=== PATIENT | female | born 1945 | race Caucasian/White ===

== ENCOUNTER → 2016-10-07 | Outpatient (CLI) | payer MEDICARE, MEDICAID ==
--- NOTE | 2016-10-07 18:56 | RADIOLOGY REPORT (SQ) ---
EXAM DESCRIPTION: MRI HEAD WITHOUT COMPLETED DATE/TIME: 10/07/2016 5:57 pm REASON FOR STUDY: CVA I63.9 CEREBRAL INFARCTION, UNSPECIFIED M54.12 RADICULOPATHY, CERVICAL REGION COMPARISON: CT dated 11/15/2011. TECHNIQUE: Multiplanar imaging includes non-contrasted T1, T2, FLAIR, and diffusion with ADC map seq uences. Images stored on PACS. LIMITATIONS: None. FINDINGS: ANATOMY: No anomalies. Normal vascular flow voids. Incidental empty sella. CSF SPACES: Normal in size and contour. No hemorrhage. CEREBRUM: Sulci and gyri normal in size and contour. Normal white matter signal on FLAIR imaging. No evidence of hemorrhage, mass, or extraaxial fluid collection. POSTERIOR FOSSA: No signal alteration. No hemorrhage. No edema, masses or mass effect. Internal vivian tory canals, cerebello-pontine angles, mastoids normal. DIFFUSION IMAGING: Negative for acute or sub-acute infarction. ORBITS: No masses. Globes normal. PARANASAL SINUSES: No fluid levels. Mucosa normal. OTHER: No other significant finding. IMPRESSION: NORMAL MRI OF THE BRAIN WITHOUT INTRAVENOUS GADOLINIUM CONTRAST. TECHNICAL DOCUMENTATION: JOB ID: [id number] [employer]- All Rights Reserved
--- NOTE | 2016-10-07 19:44 | RADIOLOGY REPORT (SQ) ---
EXAM DESCRIPTION: MRA HEAD WITHOUT COMPLETED DATE/TIME: 10/07/2016 5:57 pm REASON FOR STUDY: CVA I63.9 CEREBRAL INFARCTION, UNSPECIFIED M54.12 RADICULOPATHY, CERVICAL REGION COMPARISON: None. TECHNIQUE: Axial 3-D lnus-th-holave acquisition imaging performed through the brain in the area of t he [place]. Images reformatted using 3-D MIPS. LIMITATIONS: None. FINDINGS: SOURCE IMAGES: No unexpected findings on source images. No large masses. 3-D MIP: No aneurysm. No occlusions. No significant stenosis. Incidental origin of the left posterior cerebral artery. OTHER: No other significant finding. IMPRESSION: NORMAL MRA OF THE [place]. TECHNICAL DOCUMENTATION: JOB ID: [id number] [employer]- All Rights Reserved
--- NOTE | 2016-10-07 19:54 | RADIOLOGY REPORT (SQ) ---
EXAM DESCRIPTION: MRI CERVICAL SPINE WITHOUT COMPLETED DATE/TIME: 10/07/2016 5:57 pm REASON FOR STUDY: CVA I63.9 CEREBRAL INFARCTION, UNSPECIFIED M54.12 RADICULOPATHY, CERVICAL REGION COMPARISON: None. TECHNIQUE: Sagittal and Axial imaging includes T1, T2, STIR and gradient echo sequences. LIMITATIONS: None. FINDINGS: ALIGNMENT: Normal. VERTEBRAE: Intact. BONE MARROW: Normal. No marrow replacement or reactive changes. DISCS: Mild decreased height and signal of the lower cervical discs with prominent anterior osteophyt es, particularly at C5-C6 and C6-C7. HARDWARE: None in the spine. CORD AND BASE OF BRAIN: Normal in size and signal intensity. SOFT TISSUES: No soft tissue masses. C1-C2: No significant spinal stenosis. C2-C3: No significant spinal stenosis or exit foraminal stenosis. C3-C4: Small central disc bulge which minimally indents the thecal sac. No significant spinal stenos is or exit foraminal stenosis. C4-C5: Small central disc bulge which minimally indents the thecal sac. No significant spinal stenos is or exit foraminal stenosis. C5-C6: Mild diffuse posterior disc and osteophyte with right lateral component. Borderline mild spin al stenosis. Moderate right exit foraminal stenosis. C6-C7: Mild diffuse posterior disc and osteophyte with small central component. No significant spina l stenosis or exit foraminal stenosis. C7-T1: No significant spinal stenosis or exit foraminal stenosis. UPPER THORACIC: Incompletely imaged. No significant spinal stenosis or exit foraminal stenosis. OTHER: No other significant finding. IMPRESSION: DEGENERATIVE DISC DISEASE DESCRIBED ABOVE. NO SIGNIFICANT SPINAL STENOSIS. THERE IS MODERATE RIGHT EXIT FORAMINAL STENOSIS AT C5-C6. TECHNICAL DOCUMENTATION: JOB ID: [id number]- All Rights Reserved
== END ==
LOC: RAD 15:22
PROVIDERS: ATTEND Specialist
DX: M54.12 Radiculopathy, cervical region (principal); I63.9 Cerebral infarction, unspecified
CPT/HCPCS: 70544; 70551; 72141

== ENCOUNTER → 2016-10-17 | Outpatient (CLI) | payer MEDICARE, MEDICAID ==
--- NOTE | 2016-10-17 15:29 | RADIOLOGY REPORT (SQ) ---
EXAM DESCRIPTION: MRI LUMBAR SPINE WITHOUT COMPLETED DATE/TIME: 10/17/2016 12:56 pm REASON FOR STUDY: LUMBAR RADICULOPATHY M54.16 RADICULOPATHY, LUMBAR REGION COMPARISON: None. TECHNIQUE: Sagittal and Axial imaging includes T1, T2, STIR and gradient echo sequences. Coronal T2/ HASTE imaging. LIMITATIONS: None. FINDINGS: VISUALIZED UPPER ABDOMEN: Limited evaluation. No acute or suspicious findings suggested. SEGMENTATION: No transitional anatomy. The lowest well-developed disc space is labeled L5-S1. ALIGNMENT: 25% anterolisthesis of L4 over L5 VERTEBRAE: Intact. BONE MARROW: Normal. No marrow replacement or reactive changes. DISC SIGNAL: Diffuse decreased T2 weighted intervertebral disc signal. Significant disc space loss o f height at L5-S1 POSTERIOR ELEMENTS: Generally intact. No pars defect evident. Very bulky bilateral facet arthropat hy at L4-5 HARDWARE: None in the spine. CORD AND CONUS: Normal in size and signal intensity. Conus at the mid L1 level. SOFT TISSUES: No aortic aneurysm seen. No bulky retroperitoneal adenopathy or mass. No paraspinal mas s or fluid. T10-11: At the upper edge of the field of view. Moderate bilateral foraminal narrowing results from bilateral facet arthropathy. No central stenosis. T11-12: No central or foraminal stenosis. Mild bilateral facet hypertrophy. T12-L1: No central or foraminal stenosis. Mild bilateral facet hypertrophy. L1-L2: No significant spinal stenosis or exit foraminal stenosis. Moderate bilateral facet hypertrop hy. L2-L3: No significant spinal stenosis or exit foraminal stenosis. Moderate bilateral facet hypertrop hy L3-L4: No significant spinal stenosis or exit foraminal stenosis. Bulky bilateral facet hypertrophy L4-L5: Grade 1 anterolisthesis of L4 over L5, broad diffuse posterior disc bulge, and very bulky bila teral facet and ligament hypertrophy combine to cause moderate central canal stenosis at L4-5. There is partial effacement of the CSF around the lumbar nerve roots, best shown on axial T2 image 25. Mi ld right, moderate left foraminal narrowing with partial effacement of fat around the exiting left L4 nerve root. L5-S1: Broad diffuse posterior disc bulge and bony spurring, bulky bilateral facet and ligament hyper trophy. No central stenosis. Moderate bilateral foraminal narrowing with partial effacement of the fat around the exiting L5 nerve roots. SACRUM: Visualized upper sacrum intact. OTHER: No other significant findings. IMPRESSION: Degenerative changes most pronounced at L4-5 and L5-S1 TECHNICAL DOCUMENTATION: JOB ID: [id number] [employer]- All Rights Reserved
== END ==
LOC: RAD 10:56
PROVIDERS: ATTEND Specialist
DX: M54.16 Radiculopathy, lumbar region (principal)
CPT/HCPCS: 72148

== ENCOUNTER → 2017-01-31 | Outpatient (CLI) | payer MEDICARE, MEDICAID ==
--- NOTE | 2017-01-31 11:04 | RADIOLOGY REPORT (SQ) ---
EXAM DESCRIPTION: U/S ABDOMEN COMPLETE W/DOPPLER COMPLETED DATE/TIME: 01/31/2017 10:42 am REASON FOR STUDY: LUQ PAIN R10.12 LEFT UPPER QUADRANT PAIN COMPARISON: 04/24/2015 TECHNIQUE: Dynamic and static grayscale images acquired of the abdomen and recorded on PACS. Additio nal selected color Doppler and spectral images recorded. LIMITATIONS: Study limited by body habitus. FINDINGS: PANCREAS: No masses. Visualized pancreatic duct normal caliber. LIVER: 15.2 cm. Increased echogenicity. No masses. LIVER VASCULATURE: Normal directional flow of the main portal vein and hepatic veins. GALLBLADDER: Surgically absent. ULTRASOUND-DETECTED CLAYTON'S SIGN: Not applicable. INTRAHEPATIC DUCTS AND COMMON DUCT: There are no dilated intrahepatic ducts. The common bile duct co uld not be seen. INFERIOR VENA CAVA: Normal flow. AORTA: The proximal and mid abdominal aorta are normal. The distal aorta was obscured by gas. RIGHT KIDNEY: Normal size, 10 cm. Normal echogenicity. No solid or suspicious masses. No hydro nephrosis. No calcifications. LEFT KIDNEY: Normal size, 9.7 cm. Normal echogenicity. No solid or suspicious masses. No hydro nephrosis. No calcifications. SPLEEN: Normal size, 9.5 cm. No masses. PERITONEAL AND PLEURAL SPACES: No ascites or effusions. OTHER: No other significant finding. IMPRESSION: Fatty infiltration of the liver. TECHNICAL DOCUMENTATION: JOB ID: [id number] [employer]- All Rights Reserved
== END ==
LOC: RAD 09:41
PROVIDERS: ATTEND Physician Assistant
DX: R10.12 Left upper quadrant pain (principal)
CPT/HCPCS: 76700; 93976

== ENCOUNTER → 2017-03-03 | Outpatient (CLI) | payer MEDICARE, MEDICAID ==
--- NOTE | 2017-03-03 12:40 | RADIOLOGY REPORT (SQ) ---
EXAM DESCRIPTION: HIP LEFT AP/LATERAL COMPLETED DATE/TIME: 03/03/2017 12:02 pm REASON FOR STUDY: PAIN IN LEFT HIP M25.552 PAIN IN LEFT HIP COMPARISON: None. NUMBER OF VIEWS: Two views. TECHNIQUE: AP pelvis and additional frog-leg view of the left hip. LIMITATIONS: None. FINDINGS: MINERALIZATION: Normal. LEFT HIP: No fracture or dislocation. No worrisome bone lesions. RIGHT HIP: No fracture or dislocation. No worrisome bone lesions. PUBIS AND ISCHIUM: No fracture. PELVIS: No fracture. SACRUM: No fracture or dislocation. No worrisome bone lesions. LOWER LUMBAR SPINE: Lower lumbar spondylosis. SOFT TISSUES: No findings. OTHER: No other significant finding. IMPRESSION: NEGATIVE STUDY OF THE LEFT HIP AND PELVIS. NO RADIOGRAPHIC EVIDENCE OF ACUTE INJURY. TECHNICAL DOCUMENTATION: JOB ID: [id number] [employer]- All Rights Reserved
== END ==
LOC: OD 11:49
PROVIDERS: ATTEND Physician Assistant
DX: M25.552 Pain in left hip (principal)

== ENCOUNTER → 2017-03-05 | Outpatient (CLI) | payer MEDICARE, MEDICAID ==
--- NOTE | 2017-03-05 10:36 | RADIOLOGY REPORT (SQ) ---
EXAM DESCRIPTION: FOOT LEFT COMPLETE COMPLETED DATE/TIME: 03/05/2017 9:28 am REASON FOR STUDY: PAIN IN LEFT FOOT M79.672 PAIN IN LEFT FOOT COMPARISON: 07/15/2011 NUMBER OF VIEWS: Three views. TECHNIQUE: AP, lateral and oblique radiographic images acquired of the left foot. LIMITATIONS: None. FINDINGS: MINERALIZATION: Normal. BONES: There is a long oblique fracture of the 5th metatarsal. There are characteristics of an acute fracture but there also characteristics that suggest this may be old. Prominent calcaneal spurs are present JOINTS: No effusions. SOFT TISSUES: No soft tissue swelling. No foreign body. OTHER: No other significant finding. IMPRESSION: 5th metatarsal fracture of uncertain age. Correlate clinically and historically. Calca arash spurs. TECHNICAL DOCUMENTATION: JOB ID: [id number] [employer]- All Rights Reserved
== END ==
LOC: OD 09:15
PROVIDERS: ATTEND Physician Assistant
DX: M79.672 Pain in left foot (principal)

== ENCOUNTER → 2017-03-05 | Outpatient (CLI) | payer MEDICARE, MEDICAID ==
--- NOTE | 2017-03-05 10:27 | RADIOLOGY REPORT (SQ) ---
EXAM DESCRIPTION: CT HEAD WITHOUT COMPLETED DATE/TIME: 03/05/2017 8:38 am REASON FOR STUDY: CONCUSSION WITH LOSS OF CONSCIOUSNESS OF 30 MINUTES OR LESS (S06.0X1A) S06.0X1A C ONCUSSION W LOC OF 30 MINUTES OR LESS, INIT COMPARISON: MR 10/07/2016 TECHNIQUE: Axial images acquired through the brain without intravenous contrast. Images reviewed wi th bone, brain and subdural windows. Images stored on PACS. All CT scanners at this facility use dose modulation, iterative reconstruction, and/or weight based d osing when appropriate to reduce radiation dose to as low as reasonably achievable (ALARA). [facility]: Dose Right [facility]: CareDose [facility]: Dose Right [facility]: Teradose 4D [facility]: Vimbly RADIATION DOSE: CT Rad equipment meets quality standard of care and radiation dose reduction techniq ues were employed. CTDIvol: 49.0 mGy. DLP: 783 mGy-cm. mGy. LIMITATIONS: None. FINDINGS: VENTRICLES: Normal size and contour. CEREBRUM: No masses. No hemorrhage. No midline shift. No evidence for acute infarction. Normal gra y/white matter differentiation. No areas of low density in the white matter. CEREBELLUM: No masses. No hemorrhage. No alteration of density. No evidence for acute infarction. EXTRAAXIAL SPACES: No fluid collections. No masses. ORBITS AND GLOBE: No intra- or extraconal masses. Normal contour of globe without masses. CALVARIUM: No fracture. PARANASAL SINUSES: No fluid or mucosal thickening. SOFT TISSUES: No mass or hematoma. OTHER: No other significant finding. IMPRESSION: NORMAL BRAIN CT WITHOUT CONTRAST. EVIDENCE OF ACUTE STROKE: NO. COMMENT: Quality ID # [id number]: Final reports with documentation of one or more dose reduction techniques (e.g., Automated exposure control, adjustment of the mA and/or kV according to patient size, use of iterative reconstruction technique) TECHNICAL DOCUMENTATION: JOB ID: [id number] [employer] All Rights Reserved
== END ==
LOC: RAD 08:23
PROVIDERS: ATTEND Physician Assistant
DX: S06.0X1A Concussion with loss of consciousness of 30 minutes or less, initial encounter (principal); X58.XXXA Exposure to other specified factors, initial encounter; Y93.9 Activity, unspecified; Y92.9 Unspecified place or not applicable; Y99.9 Unspecified external cause status
CPT/HCPCS: 70450

== ENCOUNTER → 2017-03-27 | Outpatient (CLI) | payer MEDICARE, MEDICAID ==
--- NOTE | 2017-03-27 12:57 | RADIOLOGY REPORT (SQ) ---
EXAM DESCRIPTION: FOOT RIGHT 2 VIEWS COMPLETED DATE/TIME: 03/27/2017 11:41 am REASON FOR STUDY: PAIN IN RIGHT TOES M79.674 PAIN IN RIGHT TOE(S) M25.571 PAIN IN RIGHT ANKLE AND JOINTS OF RIGHT FOOT COMPARISON: None. NUMBER OF VIEWS: Three views. TECHNIQUE: AP, lateral and oblique radiographic images acquired of the right foot. LIMITATIONS: None. FINDINGS: MINERALIZATION: Normal. BONES: No fracture or dislocation. Very large plantar and dorsal calcaneal spurs are present. JOINTS: No effusions. SOFT TISSUES: No soft tissue swelling. No foreign body. OTHER: No other significant finding. IMPRESSION: Calcaneal spurs. No acute abnormality. TECHNICAL DOCUMENTATION: JOB ID: [id number] [employer]- All Rights Reserved
--- NOTE | 2017-03-27 12:59 | RADIOLOGY REPORT (SQ) ---
EXAM DESCRIPTION: ANKLE RIGHT COMPLETE COMPLETED DATE/TIME: 03/27/2017 11:41 am REASON FOR STUDY: PAIN IN RIGHT ANKLE AND JOINTS OF RIGHT FOOT M79.674 PAIN IN RIGHT TOE(S) M25.571 PAIN IN RIGHT ANKLE AND JOINTS OF RIGHT FOOT COMPARISON: 10/10/2014 NUMBER OF VIEWS: Three views. TECHNIQUE: AP, lateral, and oblique radiographic images acquired of the right ankle. LIMITATIONS: None. FINDINGS: MINERALIZATION: Normal. BONES: No acute fracture or dislocation. No worrisome bone lesions. JOINTS: No effusions. SOFT TISSUES: Lateral soft tissue swelling. OTHER: No other significant finding. IMPRESSION: Soft tissue swelling with no fracture TECHNICAL DOCUMENTATION: JOB ID: [id number] [employer]- All Rights Reserved
== END ==
LOC: OD 11:09
PROVIDERS: ATTEND Physician Assistant
DX: M79.674 Pain in right toe(s) (principal); M25.571 Pain in right ankle and joints of right foot; M77.31 Calcaneal spur, right foot; M79.89 Other specified soft tissue disorders

== ENCOUNTER → 2017-04-21 | Outpatient (CLI) | payer MEDICARE, MEDICAID ==
[2017-04-21 15:12] LABS: ABSOLUTE EOSINOPHILS # (AUTO) 0.3 10^3/uL (0.0-0.6); ABSOLUTE LYMPHOCYTES (AUTO) 2.6 10^3/uL (0.5-4.7); ABSOLUTE MONOCYTES (AUTO) 0.6 10^3/uL (0.1-1.4); ABSOLUTE NEUT (AUTO) 3.4 10^3/uL (1.7-8.2); BASOPHILS % (AUTO) 0.7 % (0-2); EOSINOPHILS % (AUTO) 4.2 % (0-6); HEMATOCRIT 44.4 % (36.0-47.0); HEMOGLOBIN 14.7 g/dL (12.0-15.5); MEAN CORPUSCULAR HEMOGLOBIN 31.7 pg (27.0-33.4); MEAN CORPUSCULAR HGB CONC 33.2 g/dL (32.0-36.0); MEAN CORPUSCULAR VOLUME 96 fl (80-97); MONOCYTES % (AUTO) 8.4 % (3-13); PLATELET COUNT 137 10^3/uL (150-450); RED BLOOD COUNT 4.65 10^6/uL (3.72-5.28); RED CELL DISTRIBUTION WIDTH 15.3 % (11.5-14.0); SEGMENTED NEUTROPHILS % (AUTO) 49.7 % (42-78); TOTAL CELLS COUNTED % (AUTO) 100 %; WHITE BLOOD COUNT 6.9 10^3/uL (4.0-10.5)
[2017-04-21 15:23] LABS: ANION GAP 14 (5-19); BLOOD UREA NITROGEN 33 mg/dL (7-20); CALCIUM 10.1 mg/dL (8.4-10.2); CARBON DIOXIDE 27 mmol/L (22-30); CHLORIDE 102 mmol/L (98-107); POTASSIUM 4.3 mmol/L (3.6-5.0); SODIUM 142.7 mmol/L (137-145)
[2017-04-21 15:24] LABS: GLUCOSE 73 mg/dL (75-110)
== END ==
LOC: OD 14:33
PROVIDERS: ATTEND Surgery
DX: R10.32 Left lower quadrant pain (principal)
CPT/HCPCS: 36415; 80048; 85025

== ENCOUNTER → 2017-04-25 | Outpatient (CLI) | payer MEDICARE, MEDICAID ==
--- NOTE | 2017-04-25 15:20 | RADIOLOGY REPORT (SQ) ---
EXAM DESCRIPTION: CT ABD/PELVIS WITH IV ORAL COMPLETED DATE/TIME: 04/25/2017 12:38 pm REASON FOR STUDY: R10.32 LEFT LOWER QUADRANT PAIN R10.32 LEFT LOWER QUADRANT PAIN COMPARISON: None. TECHNIQUE: CT scan of the abdomen and pelvis performed with intravenous and oral contrast using luis carlos libra scanning technique with dynamic intravenous contrast injection. Images reviewed with lung, soft t issue, and bone windows. Reconstructed coronal and sagittal MPR images reviewed. Delayed images for e valuation of the urinary system also acquired. All images stored on PACS. All CT scanners at this facility use dose modulation, iterative reconstruction, and/or weight based d osing when appropriate to reduce radiation dose to as low as reasonably achievable (ALARA). [facility]: Dose Right [facility]: CareDose [facility]: Dose Right [facility]: Teradose 4D [facility]: Smava CONTRAST TYPE AND DOSE: contrast/concentration: Isovue 370.00 mg/ml; Total Contrast Delivered: 100.0 ml; Total Saline Delivered: 52.3 ml RENAL FUNCTION: BUN 33 creatinine 1.1 RADIATION DOSE: CT Rad equipment meets quality standard of care and radiation dose reduction techniq ues were employed. CTDIvol: 23.8 - 26.6 mGy. DLP: 2832 mGy-cm. . LIMITATIONS: Motion. FINDINGS: LOWER CHEST: No significant findings. No nodules or infiltrates. LIVER: Normal size. No masses. No dilated ducts. SPLEEN: Normal size. Small cyst. PANCREAS: No masses. No significant calcifications. No adjacent inflammation or peripancreatic fluid collections. Pancreatic duct not dilated. GALLBLADDER: Surgically absent. ADRENAL GLANDS: No significant masses or asymmetry. RIGHT KIDNEY AND URETER: No solid masses. No significant calcifications. No hydronephrosis or hyd roureter. LEFT KIDNEY AND URETER: No solid masses. No significant calcifications. No hydronephrosis or hydr oureter. AORTA AND VESSELS: No aneurysm. No dissection. Renal arteries, SMA, celiac without stenosis. RETROPERITONEUM: No retroperitoneal adenopathy, hemorrhage or masses. BOWEL AND PERITONEAL CAVITY: No obstruction. No visualized masses. No free fluid. No inflammatory ch anges or thickening of bowel wall. APPENDIX: Surgically absent. PELVIS: No significant masses. Normal bladder. No free fluid. ABDOMINAL WALL: Small umbilical hernia containing fat. BONES: No acute findings. OTHER: No other significant finding. IMPRESSION: Small umbilical hernia. No acute findings. TECHNICAL DOCUMENTATION: JOB ID: [id number] Quality ID # [id number]: Final reports with documentation of one or more dose reduction techniques (e.g., Au tomated exposure control, adjustment of the mA and/or kV according to patient size, use of iterative reconstruction technique) 2010 [employer]- All Rights Reserved
== END ==
LOC: RAD 12:09
PROVIDERS: ATTEND Surgery
DX: R10.32 Left lower quadrant pain (principal)
CPT/HCPCS: 74177

== ENCOUNTER 2017-06-03 07:51 | Day surgery (SDC) | payer MEDICARE, MEDICAID ==
[2017-06-03] MEDS ORDERED: NALOXONE HCL INJ/PF 0.4 MG/1 ML SDV ONE (09:58)
[2017-06-03] MEDS ORDERED: ONDANSETRON HCL INJ/PF 4 MG/2 ML SDV ONE (09:58)
[2017-06-03] MEDS ORDERED: GLYCOPYRROLATE INJ 0.4 MG/2 ML VIAL ONE (09:58)
[2017-06-03] MEDS ORDERED: GLUCAGON,HUMAN RECOMB 1 MG INJ ONE (09:59)
[2017-06-03] MEDS ORDERED: FLUMAZENIL INJ 0.5 MG/5 ML VIAL ONE (09:59)
[2017-06-03] MEDS ORDERED: EPINEPHRINE INJ 1 MG/10 ML DISP.SYRIN ONE (09:59)
[2017-06-03] MEDS: MIDAZOLAM 2 MG/2 ML INJ ONE ×10 (10:26→11:43)
[2017-06-03] MEDS: FENTANYL CITRATE INJ/PF 100 MCG/2 ML AMPUL ONE ×8 (10:28→11:39)
--- NOTE | 2017-06-03 12:12 | Operative Report ---
Operative Report DATE OF SURGERY: 06/03/17 PREOPERATIVE DIAGNOSIS: Abdominal pain POSTOPERATIVE DIAGNOSIS: Antral polyp. Extensive diverticulosis of the colon. Splenic flexure serrated polyp. OPERATION: Esophagogastroduodenoscopy with snare polypectomy of gastric polyp. Colonoscopy with snare polypectomy a serrated polyp of the splenic flexure. SURGEON: TOVA MCGEE ANESTHESIA: Moderate Sedation TISSUE REMOVED OR ALTERED: Antral polyp. Serrated polyp of the splenic flexure. COMPLICATIONS: None ESTIMATED BLOOD LOSS: 20 cc INTRAOPERATIVE FINDINGS: Half centimeter sessile polyp at the prepyloric region. Half centimeter serrated polyp at the hepatic flexure. Extensive diverticulosis of the left and sigmoid colon. PROCEDURE: Informed consent was obtained. Patient was brought to the endoscopy suite. IV sedation with Versed and fentanyl was administered. Endoscope was passed via the patient's mouth into the second portion of the duodenum. The duodenum appeared to be normal. At the prepyloric region there was 1/2 cm sessile polyp. It was snare polypectomied. The specimen was retrieved. It bled at the polypectomy site requiring cautery. The site of bleeding was difficult to control. The bleeding appeared to have stopped. Remainder of the stomach appeared normal. The esophagus appeared normal. Although the bleeding appeared to have stopped, with the difficulty of obtaining initial hemostasis, after the colonoscopy portion of the procedure I rescoped her stomach to ensure that she did not have recurrent bleeding. The site of the polypectomy was irrigated. And hemostasis appeared good. Patient was repositioned. Digital rectal exam revealed no palpable perianal masses. Endoscope was passed via the patient's anus it was fed to the cecum. The cecum appeared normal. As did the right colon. There were diverticuli seen in the transverse colon. At the splenic flexure there was a serrated polyp which was snare polypectomy need and specimen retrieved. The polyp measured about half centimeter in size. The left colon had more diverticuli as did the sigmoid colon. Patient did appear to have pain during passage of the scope through the left side of her colon. But the colon demonstrated no evidence of inflammation. No mucosal lesions. No strictures. The rectum appeared normal. Patient tolerated procedure well with no apparent complications and was taken to the recovery area in stable condition. Incidental prepyloric polyp that was snare polypectomied. Will await biopsy results. I do not think it is the culprit for her abdominal pain. She has no evidence of peptic ulcer disease. Will have her hold her aspirin for a week and place her on proton pump inhibitor for a week to allow the biopsy site to heal. Patient with a serrated polyp at the splenic flexure that was snare polypectomied. Will await biopsy results. Patient with extensive left sided diverticulosis but no evidence of diverticulitis by CT and no inflammatory changes seen on endoscopy. Her left abdomen is the side of her abdominal pain and I do not have a clear-cut etiology of her pain. I will follow-up with the patient next week.
--- NOTE | 2017-06-03 12:16 | PDOC DISCHARGE SUMMARY ---
Discharge Summary (SDC) - Discharge Final Diagnosis: Abdominal pain. Prepyloric antral polyp. Splenic flexure serrated polyp. Diverticulosis of the colon. Date of Surgery: 06/03/17 Discharge Date: 06/03/17 Condition: Good Treatment or Instructions: Esophagogastroduodenoscopy with polypectomy of prepyloric polyp. Colonoscopy with polypectomy of splenic flexure polyp. August discharge patient home when met discharge criteria. Follow-up with me next week. Stop aspirin and all NSAIDs for 1 week. Discharge Diet: Diabetic Discharge Activity: Activity As Tolerated Report the Following to Your Physician Immediately: Fever over 101 Degrees, Unusual Bleeding, Large Clots Other Items to Report to MD: Black tarry stools, hematemesis
[2017-06-03] MEDS ORDERED: SIMETHICONE 80 MG TAB.CHEW ONE (12:27)
[2017-06-03 12:58] VITALS: BP 134/66
== END 2017-06-03 13:05 | disposition home or self-care (01) ==
LOC: END 07:51
PROVIDERS: ATTEND Surgery
PROC: 0DB68ZX Excision of Stomach, Via Natural or Artificial Opening Endoscopic, Diagnostic (ICD-10-PCS; principal; 2017-06-03 09:30)
PROC: 0DBL8ZX Excision of Transverse Colon, Via Natural or Artificial Opening Endoscopic, Diagnostic (ICD-10-PCS; 2017-06-03 09:30)
DX: D12.3 Benign neoplasm of transverse colon (principal); K31.7 Polyp of stomach and duodenum; K57.30 Diverticulosis of large intestine without perforation or abscess without bleeding; R10.32 Left lower quadrant pain; Z80.0 Family history of malignant neoplasm of digestive organs; Z79.899 Other long term (current) drug therapy; Z79.84 Long term (current) use of oral hypoglycemic drugs; Z79.82 Long term (current) use of aspirin; Z96.651 Presence of right artificial knee joint; Z90.49 Acquired absence of other specified parts of digestive tract
CPT/HCPCS: 43251; 45385; 82962; 88342 ×2; 88305 ×2; J2250; J3010; A9270; J2405; J0171; J1610; J2310; J3490

== ENCOUNTER → 2017-06-17 | Outpatient (CLI) | payer MEDICARE, MEDICAID ==
--- NOTE | 2017-06-17 12:47 | WOMENS IMAGING REPORT ---
EXAM DESCRIPTION: 3D SCREENING MAMMO BILAT COMPLETED DATE/TIME: 06/17/2017 11:14 am REASON FOR STUDY: SCREENING MAMMO Z12.31 ENCNTR SCREEN MAMMOGRAM FOR MALIGNANT NEOPLASM OF ARELY COMPARISON: 2006 to 2014 TECHNIQUE: Standard craniocaudal and mediolateral oblique views of each breast recorded using digita l acquisition and breast tomosynthesis. LIMITATIONS: None. FINDINGS: No masses, calcifications or architectural distortion. No areas of suspicion. Read with the assistance of CAD. .[facility] - R2 Cenova Version 1.3 .[facility] - R2 Cenova Version 1.3 .[facility] - R2 Cenova Version 2.4 .[facility] [place] - R2 Cenova Version 2.4 .[facility] - R2 [employer]r Version 9.2 IMPRESSION: NORMAL MAMMOGRAM. BIRADS 1. BREAST DENSITY: b. There are scattered areas of fibroglandular density. BIRAD: 1 NEGATIVE RECOMMENDATION: ROUTINE SCREENING COMMENT: The patient has been notified of the results by letter per SA requirements. Additional no tification policies are in place for contacting patient with suspicious or incomplete findings. Quality ID #[id number]: The [employer] recommends an annual screening mammogram for women aged 40 years or over. This facility utilizes a reminder system to ensure that all patients receive reminder letters, and/or direct phone calls for appointments. This includes reminders for routine scr eening mammograms, diagnostic mammograms, or other Breast Imaging Interventions when appropriate. Th is patient will be placed in the appropriate reminder system. The [employer] (ACR) has developed recommendations for screening MRI of the breast s in certain patient populations, to be used in conjunction with mammography. Breast MRI surveillanc e may be appropriate for women with more than 20% lifetime risk of developing breast cancer as deter mined by genetic testing, significant family history of the disease, or history of mantle radiation f or Hodgkins Disease. ACR Practice Guidelines 2008. DBT Technology DBT is a type of tomographic mammography. With conventional mammography, overlapping breast tissue ma y make lesions difficult to detect, even with good compression. DBT uses an x-ray tube that rotates a round the breast, taking images at different angles. These images are then combined to create thin sl ices of the breast that the radiologist can view as a 3D reconstruction. The Sk[employer] unit can perform full-field digital mammograms (2D imaging); or DBT (3D imaging); or both, in a combination mode that quickly performs both the mammogram and the tomosynthesis scan while the breast is still compressed. PQRS 6045F: Fluoroscopic imaging is not utilized for breast tomosynthesis. TECHNICAL DOCUMENTATION: FINDING NUMBER: (1) ASSESSMENT: (1) JOB ID: [id number] [employer]- All Rights Reserved Reading location - IP/workstation name: [email or web address]
== END ==
LOC: WI 10:42
PROVIDERS: ATTEND Physician Assistant Medical
DX: Z12.31 Encounter for screening mammogram for malignant neoplasm of breast (principal)
CPT/HCPCS: 77063; 77067

== ENCOUNTER → 2018-02-15 | Outpatient (CLI) | payer OTHER, MEDICARE, MEDICAID ==
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
== END ==
LOC: RAD 15:16
PROVIDERS: ATTEND Nurse Practitioner Acute Care
DX: S20.20XA Contusion of thorax, unspecified, initial encounter (principal); V87.7XXA Person injured in collision between other specified motor vehicles (traffic), initial encounter

== ENCOUNTER → 2018-09-24 | Outpatient (CLI) | payer MEDICARE, MEDICAID ==
[2018-09-24 13:47] LABS: APPEARANCE,URINE SLIGHTLY-CLOUDY; BILIRUBIN,URINE NEGATIVE (NEGATIVE); COLOR,URINE YELLOW; GLUCOSE, URINE NEGATIVE (NEGATIVE); KETONES,URINE NEGATIVE (NEGATIVE); LEUKOCYTE ESTERASE,URINE NEGATIVE (NEGATIVE); NITRITE,URINE NEGATIVE (NEGATIVE); PROTEIN,URINE NEGATIVE (NEGATIVE); UROBILINOGEN,URINE NEGATIVE mg/dL (<2.0)
[2018-09-24 14:12] LABS: ABSOLUTE EOSINOPHILS # (AUTO) 0.2 10^3/uL (0.0-0.6); ABSOLUTE LYMPHOCYTES (AUTO) 1.9 10^3/uL (0.5-4.7); ABSOLUTE MONOCYTES (AUTO) 0.5 10^3/uL (0.1-1.4); ABSOLUTE NEUT (AUTO) 2.4 10^3/uL (1.7-8.2); BASOPHILS % (AUTO) 0.7 % (0-2); EOSINOPHILS % (AUTO) 3.5 % (0-6); HEMATOCRIT 42.3 % (36.0-47.0); LYMPHOCYTES % (AUTO) 37.9 % (13-45); MEAN CORPUSCULAR HEMOGLOBIN 32.1 pg (27.0-33.4); MEAN CORPUSCULAR HGB CONC 33.2 g/dL (32.0-36.0); MEAN CORPUSCULAR VOLUME 97 fl (80-97); RED BLOOD COUNT 4.36 10^6/uL (3.72-5.28); RED CELL DISTRIBUTION WIDTH 15.6 % (11.5-14.0); SEGMENTED NEUTROPHILS % (AUTO) 47.9 % (42-78); TOTAL CELLS COUNTED % (AUTO) 100 %; WHITE BLOOD COUNT 4.9 10^3/uL (4.0-10.5)
[2018-09-24 14:32] LABS: PLATELET COUNT 85 10^3/uL (150-450)
[2018-09-24 14:36] LABS: ANION GAP 10 (5-19); BLOOD UREA NITROGEN 26 mg/dL (7-20); CALCIUM 10.2 mg/dL (8.4-10.2); CARBON DIOXIDE 27 mmol/L (22-30); CHLORIDE 106 mmol/L (98-107); GLUCOSE 110 mg/dL (75-110); POTASSIUM 4.2 mmol/L (3.6-5.0); SODIUM 142.8 mmol/L (137-145)
== END ==
LOC: OD 12:39
PROVIDERS: ATTEND Physician Assistant Medical
DX: I12.9 Hypertensive chronic kidney disease with stage 1 through stage 4 chronic kidney disease, or unspecified chronic kidney disease (principal); N18.3 Chronic kidney disease, stage 3 (moderate); M10.00 Idiopathic gout, unspecified site
CPT/HCPCS: 36415; 80048; 81001; 85025

== ENCOUNTER → 2019-01-11 | Outpatient (CLI) | payer MEDICARE, MEDICAID ==
--- NOTE | 2019-01-11 12:15 | RADIOLOGY REPORT (SQ) ---
EXAM DESCRIPTION: CT CHEST WITHOUT COMPLETED DATE/TIME: 01/11/2019 9:58 am REASON FOR STUDY: COPD J44.9 CHRONIC OBSTRUCTIVE PULMONARY DISEASE, UNSPECIFIED COMPARISON: CT abdomen pelvis 04/25/2017 AP chest 10/10/2014 TECHNIQUE: CT scan performed of the chest without intravenous contrast. Images reviewed with lung, soft tissue and bone windows. Reconstructed coronal and sagittal MPR images reviewed. All images st ored on PACS. All CT scanners at this facility use dose modulation, iterative reconstruction, and/or weight based d osing when appropriate to reduce radiation dose to as low as reasonably achievable (ALARA). [facility]: Dose Right [facility]: CareDose [facility]: Dose Right [facility]: Teradose 4D [facility]: Yuuguu RADIATION DOSE: CT Rad equipment meets quality standard of care and radiation dose reduction techniq ues were employed. CTDIvol: 17.9 mGy. DLP: 643 mGy-cm. mGy. LIMITATIONS: No technical limitations. FINDINGS: LUNGS AND PLEURA: Lungs are free of focal infiltrates. No worrisome pulmonary nodules. M inimal scarring posteromedial right lung base. No pleural effusion. No pneumothorax. Airways are p atent. HILAR AND MEDIASTINAL STRUCTURES: No identified masses or abnormal nodes. No obvious aneurysm. HEART AND VASCULAR STRUCTURES: No aneurysm. No pericardial effusion. UPPER ABDOMEN: Post cholecystectomy. 12 mm cysts in the liver and spleen THYROID AND OTHER SOFT TISSUES: No masses. No adenopathy. BONES: Diffuse thoracic spine ankylosis with bulky thoracic spine osteophytes HARDWARE: None in the chest. OTHER: No other significant findings. IMPRESSION: No focal lung nodules. TECHNICAL DOCUMENTATION: JOB ID: [id number] Quality ID # [id number]: Final reports with documentation of one or more dose reduction techniques (e.g., Au tomated exposure control, adjustment of the mA and/or kV according to patient size, use of iterative reconstruction technique) 2010 [employer] All Rights Reserved Reading location - IP/workstation name: [email or web address]
== END ==
LOC: RAD 09:42
PROVIDERS: ATTEND Internal Medicine Critical Care Medicine
DX: J44.9 Chronic obstructive pulmonary disease, unspecified (principal)
CPT/HCPCS: 71250

== ENCOUNTER 2019-02-11 14:27 | Emergency (ER) | payer MEDICARE, MEDICAID ==
[2019-02-11 14:35] VITALS: BP 130/75
--- NOTE | 2019-02-11 15:01 | ER Document Report ---
ED Medical Screen (RME) - General Chief Complaint: Shoulder Pain Stated Complaint: LEFT SHOULDER PAIN Time Seen by Provider: 02/11/19 14:57 Primary Care Provider: KALANI MOLINA MD [Primary Care Provider] - Follow up as needed Mode of Arrival: Wheelchair Information source: Patient Notes: 73-year-old female presents to ED for complaint of left shoulder pain since y esterday evening. She states she managed to catch herself but she injured her shoulder while falling. She is alert oriented respirations regular nonlabored speaking in full sentences she states it is very painful to move the shoulder at all. And she is left-handed. She is diabetic, 3 heart attacks 3 strokes, she has a history of Andrews's palsy, varicose spine, arthritis multiple types, reflux, sleep apnea. I have greeted and performed a rapid initial assessment of this patient. A comprehensive ED assessment and evaluation of the patient, analysis of test results and completion of medical decision making process will be conducted by an additional ED providers. TRAVEL OUTSIDE OF THE [place] IN LAST 30 DAYS: No - Related Data Allergies/Adverse Reactions: risedronate sodium [From Actonel] Allergy (Verified 02/11/19 14:56) Heart Palpitations Past Medical History - Past Medical History Cardiac Medical History: Reports: Hx Heart Attack - X3 LAST IN AUGUST 2006, Hx Hypercholesterolemia - NOT ON MEDICATION, Hx Hypertension, Hx Peripheral Vascular Disease Denies: Hx Atrial Fibrillation, Hx Coronary Artery Disease, Hx Pulmonary Embolism, Hx Heart Murmur Comment Only: Hx Congestive Heart Failure - UNKNOWN Pulmonary Medical History: Reports: Hx Pneumonia, Hx Sleep Apnea - HAS CPAP Denies: Hx Asthma, Hx Bronchitis, Hx COPD, Hx Respiratory Failure, Hx Tuberculosis Neurological Medical History: Reports: Hx Cerebrovascular Accident - x3 Last in 2006....Left side Weakness). Denies: Hx Seizures, Hx Parkinson's Disease Endocrine Medical History: Denies: Hx Graves' Disease, Hx Hyperthyroidism, Hx Hypothyroidism Renal/ Medical History: Reports: Hx Ovarian Cysts. Denies: Hx End Stage Renal Disease, Hx Kidney Stones, Hx Peritoneal Dialysis, Hx Pelvic Inflammatory Disease Malignancy Medical History: Denies: Hx Breast Cancer, Hx Cervical Cancer, Hx Leukemia, Hx Lung Cancer, Hx Ovarian Cancer GI Medical History: Reports: Hx Gastroesophageal Reflux Disease, Hx Irritable Bowel. Denies: Hx Crohn's Disease, Hx Hiatal Hernia, Hx Liver Failure, Hx Pancreatitis, Hx Ulcer Musculoskeltal Medical History: Reports Hx Arthritis - 4 TYPES, Denies Hx Fibromyalgia, Denies Hx Multiple Sclerosis, Denies Hx Muscular Dystrophy, Denies Hx Systemic Lupus Erythematosus Psychiatric Medical History: Reports: Hx Depression - ON MEDICATIONS Denies: Hx Bipolar Disorder, Hx Dementia, Hx Post Traumatic Stress Disorder, Hx Schizophrenia Traumatic Medical History: Denies: Hx Fractures Infectious Medical History: Denies: Hx HIV Past Surgical History: Reports: Hx Appendectomy, Hx Cholecystectomy, 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 Denies: Hx Bowel Surgery, Hx Section, Hx Colostomy, Hx Coronary Artery Bypass Graft, Hx Gastric Bypass Surgery, Hx Herniorrhaphy, Hx Hysterectomy, Hx Mastectomy, Hx Pacemaker, Hx Tonsillectomy, Hx Tubal Ligation - Immunizations Hx Diphtheria, Pertussis, Tetanus Vaccination: Yes Physical Exam - Vital signs Vitals: Temp Pulse Resp BP Pulse Ox 97.9 F 73 18 130/75 H 94 02/11/19 14:34 02/11/19 14:34 02/11/19 14:34 02/11/19 14:34 02/11/19 14:34 Course - Vital Signs Vital signs: Temp Pulse Resp BP Pulse Ox 97.9 F 73 18 130/75 H 94 02/11/19 14:34 02/11/19 14:34 02/11/19 14:34 02/11/19 14:34 02/11/19 14:34 Doctor's Discharge - Discharge Referrals: KALANI MOLINA MD [Primary Care Provider] - Follow up as needed
--- NOTE | 2019-02-11 15:27 | RADIOLOGY REPORT (SQ) ---
EXAM DESCRIPTION: SHOULDER LEFT 2 OR MORE VIEWS COMPLETED DATE/TIME: 02/11/2019 3:12 pm REASON FOR STUDY: fall pain with any rom COMPARISON: None. NUMBER OF VIEWS: Three views. TECHNIQUE: Internal rotation, external rotation, and Y view images acquired of the left shoulder. LIMITATIONS: None. FINDINGS: MINERALIZATION: Normal. BONES: No acute fracture. No worrisome bone lesions. JOINTS: Degenerative changes in the AC joint and glenohumeral joint. No dislocation prominent spur o n the undersurface of the acromion. VISUALIZED LUNGS AND RIBS: No pneumothorax. No rib fracture. SOFT TISSUES: No radiopaque foreign body. OTHER: No other significant finding. IMPRESSION: Degenerative changes as described. No acute fracture or dislocation. TECHNICAL DOCUMENTATION: JOB ID: [id number] [employer]- All Rights Reserved Reading location - IP/workstation name: [email or web address]
--- NOTE | 2019-02-11 15:29 | ER Document Report ---
HPI - HPI Time Seen by Provider: 02/11/19 14:57 Pain Level: 4 Context: Patient is a 73-year-old female with a history of diabetes, [place], CVA with left- sided weakness, Andrews's palsy, arthritis who presents to emergency department with a chief complaint of left shoulder pain. Patient reports yesterday she tripped over her feet. Patient reports she did stop herself from falling but when she caught herself with her left arm on the sink she heard a pop in the shoulder. Patient reports the pain was not bad yesterday but has continued to get worse. Patient complains of left anterior shoulder pain that is worse with movement. Patient reports her position of comfort is holding her arm closest to her torso. Patient states she did not hit her head or have any loss of consciousness. Patient denies any other injury. - CONSTITUTIONAL Constitutional: DENIES: Fever, Chills - NEURO Neurology: DENIES: Headache, Weakness, Vision blurred, Dizzinesss / Vertigo - CARDIOVASCULAR Cardiovascular: DENIES: Chest pain - GASTROINTESTINAL Gastrointestinal: DENIES: Abdominal Pain - REPRODUCTIVE Reproductive: DENIES: : - MUSCULOSKELETAL Musculoskeletal: REPORTS: Extremity pain Past Medical History - General Information source: Patient - Social History Smoking Status: Never Smoker Chew tobacco use (# tins/day): No Frequency of alcohol use: None Drug Abuse: None Lives with: Family Family History: Arthritis, CAD, Hyperlipidemia, Hypertension, Malignancy Patient has suicidal ideation: No Patient has homicidal ideation: No - Past Medical History Cardiac Medical History: Reports: Hx Heart Attack - X3 LAST IN AUGUST 2006, Hx Hypercholesterolemia - NOT ON MEDICATION, Hx Hypertension, Hx Peripheral Vascular Disease Denies: Hx Atrial Fibrillation, Hx Coronary Artery Disease, Hx Pulmonary Embolism, Hx Heart Murmur Comment Only: Hx Congestive Heart Failure - UNKNOWN Pulmonary Medical History: Reports: Hx Pneumonia, Hx Sleep Apnea - HAS CPAP Denies: Hx Asthma, Hx Bronchitis, Hx COPD, Hx Respiratory Failure, Hx Tuberculosis EENT Medical History: Reports: None Neurological Medical History: Reports: Hx Cerebrovascular Accident - x3 Last in 2006....Left side Weakness). Denies: Hx Seizures, Hx Parkinson's Disease Endocrine Medical History: Reports: None. Denies: Hx Graves' Disease, Hx Hyperthyroidism, Hx Hypothyroidism Renal/ Medical History: Reports: Hx Ovarian Cysts. Denies: Hx End Stage Renal Disease, Hx Kidney Stones, Hx Peritoneal Dialysis, Hx Pelvic Inflammatory Disease Malignancy Medical History: Reports: None. Denies: Hx Breast Cancer, Hx Cerv ical Cancer, Hx Leukemia, Hx Lung Cancer, Hx Ovarian Cancer GI Medical History: Reports: Hx Gastroesophageal Reflux Disease, Hx Irritable Bowel. Denies: Hx Crohn's Disease, Hx Hiatal Hernia, Hx Liver Failure, Hx Pancreatitis, Hx Ulcer Musculoskeletal Medical History: Reports Hx Arthritis - 4 TYPES, Denies Hx Fibromyalgia, Denies Hx Multiple Sclerosis, Denies Hx Muscular Dystrophy, Denies Hx Systemic Lupus Erythematosus Skin Medical History: Reports None Psychiatric Medical History: Reports: Hx Depression - ON MEDICATIONS Denies: Hx Bipolar Disorder, Hx Dementia, Hx Post Traumatic Stress Disorder, Hx Schizophrenia Traumatic Medical History: Reports: None. Denies: Hx Fractures Infectious Medical History: Reports: None. Denies: Hx HIV Past Surgical History: Reports: Hx Appendectomy, Hx Cholecystectomy, Hx Neurolo gic Surgery - cancerous tumor behind left eye, Hx Orthopedic Surgery - BILATERAL TOTAL KNEES. Denies: Hx Bowel Surgery, Hx Section, Hx Colostomy, Hx Coronary Artery Bypass Graft, Hx Gastric Bypass Surgery, Hx Herniorrhaphy, Hx Hysterectomy, Hx Mastectomy, Hx Pacemaker, Hx Tonsillectomy, Hx Tubal Ligation - Immunizations Hx Diphtheria, Pertussis, Tetanus Vaccination: Yes Hx Pneumococcal Vaccination: 01/12/17 Vertical Provider Document - CONSTITUTIONAL Agree With Documented VS: Yes Exam Limitations: No Limitations General Appearance: No Apparent Distress Notes: Patient does use a cane to walk as she does have a history of CVA with left- sided weakness. - INFECTION CONTROL TRAVEL OUTSIDE OF THE [place] IN LAST 30 DAYS: No - HEENT HEENT: Atraumatic, Normocephalic, PERRLA - NECK Neck: Normal Inspection - RESPIRATORY Respiratory: Breath Sounds Normal, No Respiratory Distress - CARDIOVASCULAR Cardiovascular: Regular Rate, Regular Rhythm - GI/ABDOMEN Gastrointestinal: Abdomen Soft, Abdomen Non-Tender - MUSCULOSKELETAL/EXTREMETIES Notes: Patient has significant tenderness to the left anterior shoulder. There is no tenderness to the lateral aspect of the shoulder of the posterior aspect of the shoulder. Patient does have limited adduction and Abduction of the shoulder. Patient is unable to elevate her arm above the shoulder as this does cause significant pain. There is no ecchymosis or deformity to the shoulder. Patient does have a weaker left power generation technician when compared to the right although the patient does report a history of left-sided weakness from her previous strokes. Patient has a strong +2 palpable brachial and radial pulse. - NEURO Level of Consciousness: Awake, Alert, Appropriate - DERM Integumentary: Warm, Dry, No Rash Course - Re-evaluation Re-evalutation: 02/11/19 15:[address] the patient in a sling as this is her position of comfort. I did inform the patient to follow-up with Dr. Canales who also performed her knee surgeries in the past. I did inform her she could potentially have a rotator cuff injury or an injury that is not showing up on the x-ray. I did inform the patient that x-ray only shows bony abnormality such as a fracture dislocation. Patient verbalized understanding. I did give the patient strict return precautions. I did inform the patient to remove her arm from the sling multiple times per day and to perform range of motion exercises to the left shoulder. Patient verbalized understanding denies questions at this time. - Vital Signs Vital signs: Temp Pulse Resp BP Pulse Ox 97.9 F 73 18 130/75 H 94 02/11/19 14:34 02/11/19 14:34 02/11/19 14:34 02/11/19 14:34 02/11/19 14:34 - Diagnostic Test Radiology reviewed: Reports reviewed Radiology results interpreted by me: 02/11/19 15:28 Shoulder X-Ray 02/11/19 15:02 IMPRESSION: Degenerative changes as described. No acute fracture or dislocation. Discharge - Discharge Clinical Impression: Injury of left shoulder Qualifiers: Encounter type: initial encounter Qualified Code(s): S49.92XA - Unspecified injury of left shoulder and upper arm, initial encounter Condition: Stable Disposition: HOME, SELF-CARE Additional Instructions: Today you are seen in the emergency department for a left shoulder injury. Your x-ray did not show any acute bony abnormality such as a fracture or dislocation. Due to the position of comfort we are placing you in a sling. Please use cold packs to the area. Please follow-up with Dr. Canales for reevaluation as you could potentially have a partial tear of the rotator cuff. Please seek medical attention if you develop severe pain, numbness or loss of function of the left arm. Please take your arm out of the sling multiple times per day and perform shoulder range of motion exercises, as discussed in shown to you. Shoulder Injury You have injured your shoulder. This usually results from stretching or tearing of the tendons during trauma. Time and protection are required in order to heal properly. Many injuries are quite disabling, and should be taken seriously. Initial treatment includes cold packs and a sling to rest the shoulder. The physician has assessed the seriousness of your injury, and has outlined a treatment plan. Understand that this treatment may change, depending on how you progress. If a re-examination was recommended, it is important that you follow up as instructed. Some shoulder injuries (such as partial tear of the rotator cuff) are only suspected after you've failed to improve. Call us if there's severe pain, numbness, or loss of function. Referrals: DESITNEY CANALES MD [ACTIVE STAFF] - Follow up as needed
== END 2019-02-11 15:43 | disposition home or self-care (01) ==
LOC: ER 14:27
DX: S49.92XA Unspecified injury of left shoulder and upper arm, initial encounter (principal); M25.512 Pain in left shoulder; W18.40XA Slipping, tripping and stumbling without falling, unspecified, initial encounter; I10 Essential (primary) hypertension; I69.359 Hemiplegia and hemiparesis following cerebral infarction affecting unspecified side

== ENCOUNTER → 2019-05-19 | Outpatient (CLI) | payer MEDICARE, MEDICAID ==
--- NOTE | 2019-05-19 12:51 | RADIOLOGY REPORT (SQ) ---
EXAM DESCRIPTION: CHEST PA/LATERAL COMPLETED DATE/TIME: 05/19/2019 10:19 am REASON FOR STUDY: MILD INTERMITTENT ASTHMA, UNCOMPLICATED COMPARISON: 05/23/2015 EXAM PARAMETERS: NUMBER OF VIEWS: two views TECHNIQUE: Digital Frontal and Lateral radiographic views of the chest acquired. RADIATION DOSE: NA LIMITATIONS: none FINDINGS: LUNGS AND PLEURA: No opacities, masses or pneumothorax. No pleural effusion. MEDIASTINUM AND HILAR STRUCTURES: No masses or contour abnormalities. HEART AND VASCULAR STRUCTURES: Heart normal size. No evidence for failure. BONES: No acute findings. HARDWARE: None in the chest. OTHER: No other significant finding. IMPRESSION: NO SIGNIFICANT RADIOGRAPHIC FINDING IN THE CHEST. RECOMMENDATION: 05/23/2015 TECHNICAL DOCUMENTATION: JOB ID: [id number] [employer]- All Rights Reserved Reading location - IP/workstation name: [email or web address]
== END ==
LOC: RAD 10:08
PROVIDERS: ATTEND Physician Assistant
DX: J45.20 Mild intermittent asthma, uncomplicated (principal)
CPT/HCPCS: 71046

== ENCOUNTER 2019-06-21 11:07 | Emergency (ER) | payer MEDICARE, MEDICAID ==
--- NOTE | 2019-06-21 11:41 | ER Document Report ---
ED Fall - General Chief Complaint: Fall Stated Complaint: FALL BODY PAIN Time Seen by Provider: 06/21/19 11:19 Primary Care Provider: HU HUGHES PA-C [Primary Care Provider] - Follow up as needed DESTINEY CANALES MD [ACTIVE STAFF] - Follow up in 3-5 days Mode of Arrival: Medic Information source: Patient Notes: Patient states she was walking on uneven sidewalk and her cane hit in uneven edge causing her to fall. Patient reports hitting her head. Patient denies any loss of consciousness nausea or vomiting. Patient complains of low back pain, headache, left thumb pain, right hip thigh and knee pain, and left ankle pain. Patient does state that she has chronic low back pain and she is having pain in the location of her usual chronic back pain. TRAVEL OUTSIDE OF THE [place] IN LAST 30 DAYS: No - HPI Occurred: Just prior to arrival Where: Outdoors, Public place Context: Tripped Associated symptoms: denies: Lost consciousness Location of injury/pain: Ankle, Back, Face, Finger, Head, Hip, Knee, Thigh, Lower extremity Quality of pain: Achy Pain Level: 4 - Related data Allergies/Adverse Reactions: risedronate sodium [From Actonel] Allergy (Verified 02/11/19 14:56) Heart Palpitations Past Medical History - General Information source: Patient - Social History Smoking Status: Never Smoker Frequency of alcohol use: None Drug Abuse: None Occupation: none Lives with: Family Family History: Arthritis, CAD, Hyperlipidemia, Hypertension, Malignancy Patient has suicidal ideation: No Patient has homicidal ideation: No - Past Medical History Cardiac Medical History: Reports: Hx Heart Attack - X3 LAST IN AUGUST 2006, Hx Hypercholesterolemia - NOT ON MEDICATION, Hx Hypertension, Hx Peripheral Vascular Disease Comment Only: Hx Congestive Heart Failure - UNKNOWN Pulmonary Medical History: Reports: Hx Pneumonia, Hx Sleep Apnea - HAS CPAP Neurological Medical History: Reports: Hx Cerebrovascular Accident - x3 Last in 2006....Left side Weakness). 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 denies: Fever, Recent illness EENT: No symptoms reported. denies: Blurred vision Cardiovascular: No symptoms reported. denies: Chest pain, Syncope, Dizziness, Lightheaded Respiratory: No symptoms reported. denies: Cough, Short of breath Gastrointestinal: No symptoms reported. denies: Abdominal pain, Nausea, Vomiting Genitourinary: No symptoms reported Female Genitourinary: No symptoms reported Musculoskeletal: Back pain, Joint pain - Right hip, right knee, left ankle, left thumb Skin: Other - Abrasion to face Hematologic/Lymphatic: No symptoms reported Neurological/Psychological: Headaches. denies: Confusion, Dementia, Lost consciousness Physical Exam - Vital signs Vitals: Resp Pulse Ox 20 97 06/21/19 11:13 06/21/19 11:13 - General General appearance: Appears well, Alert In distress: None - HEENT Head: Abrasions - Bridge of nose, Ecchymosis - Right side of forehead, Tenderness - Right forehead. No: Atraumatic, Yang's sign, [place]'s eyes Eyes: Normal Conjunctiva: Normal Extraocular movements intact: Yes Pupils: PERRL Ears: Normal External canal: Normal Tympanic membrane: Normal. No: Hemotympanum Nasal: Normal Neck: Normal, Supple. No: Lymphadenopathy Notes: No cervical midline tenderness step-off or deformity - Respiratory Respiratory status: No respiratory distress Chest status: Nontender Breath sounds: Normal. No: Rales, Rhonchi, Stridor, Wheezing Chest palpation: Normal - Cardiovascular Rhythm: Regular Heart sounds: S1 appreciated, S2 appreciated - Abdominal Inspection: Morbidly Obese Distension: No distension Bowel sounds: Normal Tenderness: Nontender - Back Back: Vertebra tenderness - Lower lumbar midline tenderness, no obvious step- offs or deformity. No: Deformity/step-off - Extremities General upper extremity: Normal strength General lower extremity: Normal strength Shoulder: Normal, Nontender Arm: Normal, Nontender Elbow: Normal, Nontender Forearm: Normal, Nontender Wrist: Normal, Nontender Hand: Tender - Generalized left thumb tenderness with abrasion to the left thumb but no deformity, Abrasion, No evidence of FB. No: Deformity, Dislocation, Ecchymosis, Instability, Laceration, Nail injury Hip: Tender - Right hip tenderness over anterior aspect of hip, Pain with ROM Thigh: Tender - Right thigh tenderness. No: Laceration Knee: Tender - Right knee joint tenderness, Patellar tendon intact. No: Dislocation, Instability, Laceration Calf: Normal, Nontender Ankle: Tender - Left ankle tenderness over lateral malleolar area, Edema - 3+ edema to bilateral ankles. No: Instability, Laceration, Limited ROM Foot: Normal, Nontender - Neurological Neuro grossly intact: Yes Cognition: Normal Orientation: AAOx4 [place] Coma Scale Eye Opening: Spontaneous Tracee Coma Scale Verbal: Oriented Tracee Coma Scale Motor: Obeys Commands [place] Coma Scale Total: 15 - Psychological Associated symptoms: Normal affect, Normal mood - Skin Skin Temperature: Warm Skin Moisture: Dry Location of irregularity: Face, Other - Abrasion to bridge of nose and left thumb, hematoma to right side of forehead Course - Re-evaluation Re-evalutation: 06/21/19 13:35 Radiology reports reviewed. Patient without any acute fracture or evidence of hardware failure. Patient without any intracranial bleed. Will immobilize right knee and left ankle joint. Patient does have a walker at home that she can use and patient is already on prescription pain medication. Patient encouraged to follow-up with her orthopedic doctor for recheck. Patient verbalized understanding of instructions and is agreeable with discharge plan of care at this time. - Vital Signs Vital signs: Temp Pulse Resp BP Pulse Ox 98.2 F 74 18 120/76 98 06/21/19 14:35 06/21/19 14:35 06/21/19 14:35 06/21/19 14:35 06/21/19 14:35 - Diagnostic Test Radiology reviewed: Image reviewed, Reports reviewed Procedures - Immobilization Right Knee Pre-Proc Neuro Vasc Exam: Normal Immobilizer type: Maynor wrap Performed by: RN Post-Proc Neuro Vasc Exam: Normal Alignment checked and good: Yes Left Ankle Pre-Proc Neuro Vasc Exam: Normal Immobilizer type: Maynor wrap Performed by: RN Post-Proc Neuro Vasc Exam: Normal Alignment checked and good: Yes Discharge - Discharge Clinical Impression: Right hip pain Fall Qualifiers: Encounter type: initial encounter Qualified Code(s): W19.XXXA - Unspecified fall, initial encounter Facial abrasion Qualifiers: Encounter type: initial encounter Qualified Code(s): S00.81XA - Abrasion of other part of head, initial encounter Left ankle sprain Qualifiers: Encounter type: initial encounter Involved ligament of ankle: unspecified ligament Qualified Code(s): S93.402A - Sprain of unspecified ligament of left ankle, initial encounter Left thumb sprain Qualifiers: Encounter type: initial encounter Sprain of finger site: unspecified site Qualified Code(s): S63.602A - Unspecified sprain of left thumb, initial encounter Right knee sprain Qualifiers: Encounter type: initial encounter Involved ligament of knee: unspecified ligament Qualified Code(s): S83.91XA - Sprain of unspecified site of right knee, initial encounter Low back pain Qualifiers: Chronicity: chronic Back pain laterality: bilateral Sciatica presence: without sciatica Qualified Code(s): M54.5 - Low back pain Head injury Qualifiers: Encounter type: initial encounter Qualified Code(s): S09.90XA - Unspecified injury of head, initial encounter Condition: Stable Disposition: HOME, SELF-CARE Instructions: Abrasions ([facility]), Maynor Wrap ([facility]), Head Injury Precautions ([facility]), Ice & Elevation ([facility]), Sprain ([facility]), Sprained Ankle ([facility]), Sprained Knee ([facility]) Additional Instructions: Return immediately for any new or worsening symptoms Followup with your primary care provider, call tomorrow to make a followup appointment Follow-up with your orthopedic surgeon for recheck, call tomorrow for an appointment Us your walker that you have at home to assist with ambulation Referrals: HU HUGHES PA-C [Primary Care Provider] - Follow up as needed DESTINEY CANALES MD [ACTIVE STAFF] - Follow up in 3-5 days
--- NOTE | 2019-06-21 12:03 | RADIOLOGY REPORT (SQ) ---
EXAM DESCRIPTION: CT HEAD WITHOUT COMPLETED DATE/TIME: 06/21/2019 11:52 am REASON FOR STUDY: fall, head injury COMPARISON: 03/05/2017 TECHNIQUE: Axial images acquired through the brain without intravenous contrast. Images reviewed wi th bone, brain and subdural windows. Additional sagittal and coronal reconstructions were generated. Images stored on PACS. All CT scanners at this facility use dose modulation, iterative reconstruction, and/or weight based d osing when appropriate to reduce radiation dose to as low as reasonably achievable (ALARA). [facility]: Dose Right [facility]: CareDose [facility]: Dose Right [facility]: Teradose 4D [facility]: [employer] RADIATION DOSE: CT Rad equipment meets quality standard of care and radiation dose reduction techniq ues were employed. CTDIvol: 53.2 mGy. DLP: 1044 mGy-cm. mGy. LIMITATIONS: None. FINDINGS: VENTRICLES: Age appropriate. CEREBRUM: No masses. No hemorrhage. No midline shift. No evidence for acute infarction. Normal gra y/white matter differentiation. No significant areas of low density in the white matter. CEREBELLUM: No masses. No hemorrhage. No alteration of density. No evidence for acute infarction. EXTRAAXIAL SPACES: No fluid collections. No masses. Mild involutional change. ORBITS AND GLOBE: No intra- or extraconal masses. Normal contour of globe without masses. CALVARIUM: No fracture. PARANASAL SINUSES: No fluid or mucosal thickening. SOFT TISSUES: Mild soft tissue swelling and subcutaneous stranding along the right frontal calvarium. OTHER: No other significant finding. IMPRESSION: No evidence of acute intracranial abnormality. Soft tissue swelling along the right frontal calvarium. No fracture. EVIDENCE OF ACUTE STROKE: NO. COMMENT: Quality ID # [id number]: Final reports with documentation of one or more dose reduction techniques (e.g., Automated exposure control, adjustment of the mA and/or kV according to patient size, use of iterative reconstruction technique) TECHNICAL DOCUMENTATION: JOB ID: [id number] 2010 [employer]- All Rights Reserved Reading location - IP/workstation name: [email or web address]
--- NOTE | 2019-06-21 12:42 | RADIOLOGY REPORT (SQ) ---
EXAM DESCRIPTION: FINGER LEFT COMPLETED DATE/TIME: 06/21/2019 12:31 pm REASON FOR STUDY: fall,L thumb injury COMPARISON: None. NUMBER OF VIEWS: Three views. TECHNIQUE: AP, lateral, and oblique images acquired of the left thumb. LIMITATIONS: None. FINDINGS: MINERALIZATION: Decreased. BONES: No acute fracture or dislocation. No worrisome bone lesions. Degenerative changes at the int erphalangeal joints with joint space loss, osteophytosis and subchondral sclerosis. Additional degen erative changes at the 1st carpometacarpal joint. SOFT TISSUES: No soft tissue swelling. No foreign body. OTHER: No other significant finding. IMPRESSION: No evidence of acute bony abnormality. Moderate scattered osteoarthritic changes. TECHNICAL DOCUMENTATION: JOB ID: [id number] 2010 [employer]- All Rights Reserved Reading location - IP/workstation name: [email or web address]
--- NOTE | 2019-06-21 12:45 | RADIOLOGY REPORT (SQ) ---
EXAM DESCRIPTION: ANKLE LEFT COMPLETE COMPLETED DATE/TIME: 06/21/2019 12:31 pm REASON FOR STUDY: fall,L lat ankle pain COMPARISON: None. NUMBER OF VIEWS: Four views. TECHNIQUE: AP, lateral, oblique, and mortise radiographic images acquired of the left ankle. LIMITATIONS: None. FINDINGS: MINERALIZATION: Decreased. BONES: No definite acute fracture. No dislocation. Extensive degenerative changes with osteophytosi s at the medial and lateral malleoli. Plantar and calcaneal enthesophytes. Calcifications within th e Achilles tendon. Moderate midfoot osteophytosis. JOINTS: No dislocation SOFT TISSUES: Soft tissue swelling about the ankle. Obesity. OTHER: No other significant finding. IMPRESSION: 1. No definite acute bony abnormality of the left ankle. Soft tissue swelling and jillian a about the ankle. 2. Moderate osteoarthritic changes about the ankle as above. TECHNICAL DOCUMENTATION: JOB ID: [id number] 2010 [employer]- All Rights Reserved Reading location - IP/workstation name: [email or web address]
--- NOTE | 2019-06-21 12:46 | RADIOLOGY REPORT (SQ) ---
EXAM DESCRIPTION: FEMUR RIGHT COMPLETED DATE/TIME: 06/21/2019 12:31 pm REASON FOR STUDY: fall,R hip, femur, knee pain COMPARISON: None. NUMBER OF VIEWS: Two views. TECHNIQUE: Two radiographic images acquired of the right femur to include hip and knee in at least o ne projection. LIMITATIONS: None. FINDINGS: MINERALIZATION: Decreased. BONES: No acute fracture. No worrisome bone lesions. Degenerative changes about the hip. Total kne e arthroplasty without evidence of complication. SOFT TISSUES: No obvious swelling or foreign body. OTHER: Obesity. IMPRESSION: No evidence of acute bony abnormality of the right femur. TECHNICAL DOCUMENTATION: JOB ID: [id number] 2010 [employer]- All Rights Reserved Reading location - IP/workstation name: [email or web address]
--- NOTE | 2019-06-21 12:47 | RADIOLOGY REPORT (SQ) ---
EXAM DESCRIPTION: TIBIA FIBULA RIGHT COMPLETED DATE/TIME: 06/21/2019 12:31 pm REASON FOR STUDY: fall,RLE pain COMPARISON: None. NUMBER OF VIEWS: Two views. TECHNIQUE: Two radiographic images acquired of the right tibia and fibula to include the knee and an kle in at least one projection. LIMITATIONS: None. FINDINGS: MINERALIZATION: Decreased. BONES: No acute fracture or dislocation. No worrisome bone lesions. Right total knee arthroplasty. Degenerative changes about the knee and ankle. SOFT TISSUES: No obvious swelling or foreign body. OTHER: Obesity. IMPRESSION: No evidence of acute bony abnormality of the right tibia and fibula. Right total knee arthroplasty with degenerative changes about the knee and ankle. TECHNICAL DOCUMENTATION: JOB ID: [id number] 2010 [employer]- All Rights Reserved Reading location - IP/workstation name: [email or web address]
--- NOTE | 2019-06-21 12:48 | RADIOLOGY REPORT (SQ) ---
EXAM DESCRIPTION: PELVIS AP COMPLETED DATE/TIME: 06/21/2019 12:31 pm REASON FOR STUDY: fall, R hip, femur pain COMPARISON: None. NUMBER OF VIEWS: One view TECHNIQUE: AP Pelvis LIMITATIONS: None. FINDINGS: MINERALIZATION: Normal. HIPS: No acute fracture or dislocation. No worrisome bone lesions. Mild to moderate degenerative maryellen nges at the hips with joint space loss, osteophytosis and subchondral sclerosis. PELVIS AND SACRUM: No acute fracture or dislocation. No worrisome bone lesions. PUBIS AND ISCHIUM: No acute fracture. LOWER LUMBAR SPINE: Lower lumbar spondylosis and facet arthropathy. SOFT TISSUES: Pelvic phleboliths. OTHER: No other significant finding. IMPRESSION: No evidence of acute bony abnormality of the pelvis on the single AP projection. COMMENT: Pelvic fractures are often occult on plain radiographs. If strong clinical suspicion for f racture, recommend CT or MR. TECHNICAL DOCUMENTATION: JOB ID: [id number] 2010 [employer]- All Rights Reserved Reading location - IP/workstation name: [email or web address]
--- NOTE | 2019-06-21 12:50 | RADIOLOGY REPORT (SQ) ---
EXAM DESCRIPTION: L SPINE WHOLE COMPLETED DATE/TIME: 06/21/2019 12:31 pm REASON FOR STUDY: fall, low back pain COMPARISON: None. NUMBER OF VIEWS: Five views including obliques. TECHNIQUE: AP, lateral, oblique, and sacral radiographic images acquired of the lumbar spine. LIMITATIONS: None. FINDINGS: MINERALIZATION: Decreased. SEGMENTATION: Normal. No transitional anatomy. ALIGNMENT: Straightening of the normal lumbar lordosis. Grade 1 anterolisthesis of L4 on L5. VERTEBRAE: Maintained height. No fracture or worrisome bone lesion. DISCS: Multilevel disc height loss and endplate change greatest at L3-4, L4-5 and L5-S1. Bulky osteo phytes at the thoracolumbar junction and at L4-5 on the left. POSTERIOR ELEMENTS: Extensive facet arthropathy greatest at L3-S1. HARDWARE: Cholecystectomy clips. PARASPINAL SOFT TISSUES: Normal. PELVIS: Intact as visualized. No fractures or worrisome bone lesions. SI joints intact. OTHER: No other significant finding. IMPRESSION: No definite acute bony abnormality of the lumbar spine identified. Multilevel degenerative changes with disc height loss and facet arthropathy greatest from L3-S1. Gra de 1 anterolisthesis of L4 on L5. TECHNICAL DOCUMENTATION: JOB ID: [id number] 2010 [employer]- All Rights Reserved Reading location - IP/workstation name: [email or web address]
[2019-06-21] MEDS ORDERED: OXYCODONE-ACETAMINOPHEN 5-325 MG TABLET PO ONE (13:15)
[2019-06-21 14:36] VITALS: BP 120/76
== END 2019-06-21 14:38 | disposition home or self-care (01) ==
LOC: ER 11:07
DX: S00.83XA Contusion of other part of head, initial encounter (principal); S00.31XA Abrasion of nose, initial encounter; S60.312A Abrasion of left thumb, initial encounter; S00.81XA Abrasion of other part of head, initial encounter; S93.402A Sprain of unspecified ligament of left ankle, initial encounter; S63.602A Unspecified sprain of left thumb, initial encounter; S83.91XA Sprain of unspecified site of right knee, initial encounter; M79.651 Pain in right thigh; M25.561 Pain in right knee; M25.551 Pain in right hip; W19.XXXA Unspecified fall, initial encounter; M79.10 Myalgia, unspecified site; G89.29 Other chronic pain; M54.5 Low back pain; E66.01 Morbid (severe) obesity due to excess calories; I69.954 Hemiplegia and hemiparesis following unspecified cerebrovascular disease affecting left non-dominant side; E78.00 Pure hypercholesterolemia, unspecified; I10 Essential (primary) hypertension; I25.2 Old myocardial infarction; Z96.653 Presence of artificial knee joint, bilateral
CPT/HCPCS: 99284; 73610; 73552; 73140; 72110; 72170; 73590; 70450; A9270

== ENCOUNTER 2019-08-09 19:29 | Emergency (ER) | payer MEDICARE, MEDICAID ==
[2019-08-09] MEDS ORDERED: DIPH/PERTUSS(ACELL)/TETANUS VAC/PF 0.5 ML SYR (>=10YO) IM ONE (20:13)
[2019-08-09] MEDS ORDERED: OXYCODONE-ACETAMINOPHEN 5-325 MG TABLET PO ONE (20:14)
--- NOTE | 2019-08-09 20:31 | ER Document Report ---
ED General - General Chief Complaint: Fall Stated Complaint: FALL/RIGHT ARM INJURY/FACIAL INJURY/LEFT KNEE PAIN Time Seen by Provider: 08/09/19 20:01 Primary Care Provider: HU HUGHES PA-C [Primary Care Provider] - Follow up as needed TRAVEL OUTSIDE OF THE [place] IN LAST 30 DAYS: No - HPI Notes: Patient is a 73-year-old female who presents to the emergency department for evaluation after a fall. She has known balance issues. She was walking down a ramp and tripped and fell. She is not sure when her last tetanus shot was. She did hit her head but denies loss of consciousness. She complains of pain in her right wrist and her left knee. She currently puts her pain at a "11 out of 10." - Related Data Allergies/Adverse Reactions: risedronate sodium [From Actonel] Allergy (Verified 02/11/19 14:56) Heart Palpitations Past Medical History - General Information source: Patient - Social History Smoking Status: Never Smoker Family History: Arthritis, CAD, Hyperlipidemia, Hypertension, Malignancy Patient has suicidal ideation: No Patient has homicidal ideation: No - Past Medical History Cardiac Medical History: Reports: Hx Heart Attack - X3 LAST IN AUGUST 2006, Hx Hypercholesterolemia - NOT ON MEDICATION, Hx Hypertension, Hx Peripheral Vascular Disease Denies: Hx Atrial Fibrillation, Hx Coronary Artery Disease, Hx Pulmonary Embolism, Hx Heart Murmur Comment Only: Hx Congestive Heart Failure - UNKNOWN Pulmonary Medical History: Reports: Hx Pneumonia, Hx Sleep Apnea - HAS CPAP Denies: Hx Asthma, Hx Bronchitis, Hx COPD, Hx Respiratory Failure, Hx Tuberculosis Neurological Medical History: Reports: Hx Cerebrovascular Accident - x3 Last in 2006....Left side Weakness). Denies: Hx Seizures, Hx Parkinson's Disease Endocrine Medical History: Denies: Hx Graves' Disease, Hx Hyperthyroidism, Hx Hypothyroidism Renal/ Medical History: Reports: Hx Ovarian Cysts. Denies: Hx End Stage Renal Disease, Hx Kidney Stones, Hx Peritoneal Dialysis, Hx Pelvic Inflammatory Disease Malignancy Medical History: Denies: Hx Breast Cancer, Hx Cervical Cancer, Hx Leukemia, Hx Lung Cancer, Hx Ovarian Cancer GI Medical History: Reports: Hx Gastroesophageal Reflux Disease, Hx Irritable Bowel. Denies: Hx Crohn's Disease, Hx Hiatal Hernia, Hx Liver Failure, Hx Pancreatitis, Hx Ulcer Musculoskeletal Medical History: Reports Hx Arthritis - 4 TYPES, Denies Hx Fibromyalgia, Denies Hx Multiple Sclerosis, Denies Hx Muscular Dystrophy, Denies Hx Systemic Lupus Erythematosus Psychiatric Medical History: Reports: Hx Depression - ON MEDICATIONS Denies: Hx Bipolar Disorder, Hx Dementia, Hx Post Traumatic Stress Disorder, Hx Schizophrenia Traumatic Medical History: Denies: Hx Fractures Infectious Medical History: Denies: Hx HIV Past Surgical History: Reports: Hx Appendectomy, Hx Cholecystectomy, 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 Denies: Hx Bowel Surgery, Hx Section, Hx Colostomy, Hx Coronary Artery Bypass Graft, Hx Gastric Bypass Surgery, Hx Herniorrhaphy, Hx Hysterectomy, Hx Mastectomy, Hx Pacemaker, Hx Tonsillectomy, Hx Tubal Ligation - Immunizations Hx Diphtheria, Pertussis, Tetanus Vaccination: Yes Hx Pneumococcal Vaccination: 01/12/17 Review of Systems - Review of Systems Musculoskeletal: See HPI Skin: See HPI -: Yes All other systems reviewed and negative Physical Exam - Vital signs Vitals: Temp Pulse Resp BP Pulse Ox 97.6 F 86 20 143/63 H 95 08/09/19 19:35 08/09/19 19:35 08/09/19 19:35 08/09/19 19:35 08/09/19 19:35 - Notes Notes: Vital signs reviewed, please refer to chart. Head is normocephalic. Pupils equal round, reactive to light. Neck is supple without meningismus. Heart is regular rate and rhythm. Lungs are clear to auscultation bilaterally. Abdomen is soft, nontender, normoactive bowel sounds throughout. Extremities without cyanosis, clubbing. Posterior calves are nontender. Peripheral pulses are equal. Skin is warm and dry. Patient is awake, alert, neurological exam is nonfocal. Course - Re-evaluation Re-evalutation: 08/09/19 21:35 Patient presents to the emergency department for evaluation after a fall. She did have a head injury, injury to the right wrist and left knee. She is left- hand dominant. Her x-ray showed a possible triquetral fracture on the right. We will order a splint to be placed. Otherwise her imaging was unremarkable for any acute findings. She is feeling improved after pain medication. Her tetanus was updated. We will refer her on to orthopedics for further evaluation. She has seen Dr. Sanches in the past. She is to return to the ED with worsening. 08/09/19 22:03 Neurovascularly intact following splint placement. Patient will be discharged. - Vital Signs Vital signs: Temp Pulse Resp BP Pulse Ox 97.6 F 86 20 143/63 H 95 08/09/19 19:37 08/09/19 19:35 08/09/19 19:35 08/09/19 19:35 08/09/19 19:35 Discharge - Discharge Clinical Impression: Closed head injury Qualifiers: Encounter type: initial encounter Qualified Code(s): S09.90XA - Unspecified injury of head, initial encounter Nasal abrasion Qualifiers: Encounter type: initial encounter Qualified Code(s): S00.31XA - Abrasion of nose, initial encounter Wrist fracture, right Qualifiers: Encounter type: initial encounter Fracture type: closed Qualified Code(s): S62.101A - Fracture of unspecified carpal bone, right wrist, initial encounter for closed fracture Contusion of left knee Qualifiers: Encounter type: initial encounter Qualified Code(s): S80.02XA - Contusion of left knee, initial encounter Condition: Stable Disposition: HOME, SELF-CARE Instructions: Abrasions of the Face ([facility]), Contusion ([facility]), Fracture ([facility]) Additional Instructions: Wear splint as directed. Follow-up with orthopedics, call your orthopedic surgeon, Dr. Sanches, as discussed. Tylenol for moderate pain, your Percocet at home for severe pain. Please refrain from driving. Keep your abrasions clean with soap and water, watch for signs of infection. Return to the ER with worsening or new concerning symptoms of any sort. Referrals: HU HUGHES PA-C [Primary Care Provider] - Follow up as needed
--- NOTE | 2019-08-09 20:50 | RADIOLOGY REPORT (SQ) ---
EXAM DESCRIPTION: CT HEAD WITHOUT IV CONTRAST COMPLETED DATE/TME: 08/09/2019 20:10 CLINICAL HISTORY: fall, injury COMPARISON: None Available. TECHNIQUE: Contiguous axial images of the brain were obtained without the administration of intravenous contrast. This exam was performed according to our departmental dose-optimization program, which includes automated exposure control, adjustment of the mA and/or kV according to patient size and/or use of iterative reconstruction technique. FINDINGS: There is no acute intracranial hemorrhage or mass effect. Ventricular system is within normal limits. There is adequate winslow-white matter differentiation. There is no skull fracture. The visualized paranasal sinuses and mastoid air cells are within normal limits. IMPRESSION: No acute intracranial abnormalities.
--- NOTE | 2019-08-09 20:57 | RADIOLOGY REPORT (SQ) ---
EXAM DESCRIPTION: CT CERVICAL SPINE WITHOUT IV CONTRAST COMPLETED DATE/TME: 08/09/2019 20:11 CLINICAL HISTORY: fall, injury COMPARISON: None Available TECHNIQUE: Contiguous axial images of the cervical spine were obtained without the administration of intravenous contrast followed by reconstruction images. This exam was performed according to our departmental dose-optimization program, which includes automated exposure control, adjustment of the mA and/or kV according to patient size and/or use of iterative reconstruction technique. FINDINGS: There is no acute fracture or subluxation. Prevertebral soft tissues are within normal limits. There is intervertebral disc space narrowing and osteophytic formation more pronounced at C4-C5, C5-C6 and C6-C7. There is bilateral neural foramina narrowing at C5-C6. There is a central disc protrusion at C3-C4, AP diameter of approximately 2.7 mm. There is also central disc protrusion at C4-C5 measuring approximately 3.5 mm. IMPRESSION: No acute fracture or subluxation. Degenerative changes. Central disc protrusions at C3-C4 and C4-C5. Follow-up nonemergent MRI could be helpful for further evaluation.
--- NOTE | 2019-08-09 20:58 | RADIOLOGY REPORT (SQ) ---
EXAM DESCRIPTION: Three views of the left knee CLINICAL HISTORY: 73 years Female, injury fall. Pain. Bone mineralization is diminished. Soft tissue swelling is present anterior to the distal femur. No acute fracture is identified. COMPARISON: Radiographs of the left tibia October 10, 2014 FINDINGS: Postsurgical change of hinged knee arthroplasty is identified with longstem femoral and tibial components. Some heterotopic ossification is present anterior and posterior to the knee joint. This has increased when compared to the previous exam. IMPRESSION: Postsurgical change of hinged knee arthroplasty. No fracture. Osteopenia.
--- NOTE | 2019-08-09 21:14 | RADIOLOGY REPORT (SQ) ---
EXAM DESCRIPTION: Three views of the right wrist CLINICAL HISTORY: 73 years Female, injury and pain COMPARISON: None. FINDINGS: Soft tissues are diffusely prominent. There is mild narrowing of the radiocarpal joint. Narrowing of the first CMC and STT joint is present with mild sclerosis. On the lateral view there is a small ossific density present posteriorly to the wrist joint at the level of the proximal carpal row. This may represent a small avulsion fracture. IMPRESSION: 1. Degenerative arthritis probably the first CMC and STT joint. 2. Soft tissue swelling. Small bone fragment is present posterior to the proximal carpal row and may represent a small avulsion fracture. Possibly from the triquetrum.
[2019-08-09 22:10] VITALS: BP 138/72
== END 2019-08-09 22:23 | disposition home or self-care (01) ==
LOC: ER 19:29
PROC: 2W3CX1Z Immobilization of Right Lower Arm using Splint (ICD-10-PCS; principal; 2019-08-09)
DX: S62.101A Fracture of unspecified carpal bone, right wrist, initial encounter for closed fracture (principal); S09.90XA Unspecified injury of head, initial encounter; S00.31XA Abrasion of nose, initial encounter; S80.02XA Contusion of left knee, initial encounter; M25.562 Pain in left knee; W01.0XXA Fall on same level from slipping, tripping and stumbling without subsequent striking against object, initial encounter; Z91.81 History of falling; M25.531 Pain in right wrist; Z88.8 Allergy status to other drugs, medicaments and biological substances; I25.2 Old myocardial infarction; I10 Essential (primary) hypertension
CPT/HCPCS: 99284; 90471; 73562; 73110; 70450; 72125; 90715; 29125; A9270

== ENCOUNTER 2019-09-07 04:12 | Inpatient (IN) | payer MEDICARE, MEDICAID ==
[2019-09-07 05:29] LABS: VENOUS BLOOD BASE EXCESS -2.1 mmol/L; VENOUS BLOOD HCO3 22.5 mmol/L (20-32); VENOUS BLOOD PCO2 37.9 mmHg (35-63); VENOUS BLOOD PH 7.39 (7.30-7.42)
[2019-09-07 05:38] LABS: HEMATOCRIT 38.8 % (36.0-47.0); HEMOGLOBIN 13.1 g/dL (12.0-15.5); MEAN CORPUSCULAR HEMOGLOBIN 34.6 pg (27.0-33.4); MEAN CORPUSCULAR HGB CONC 33.8 g/dL (32.0-36.0); MEAN CORPUSCULAR VOLUME 102 fl (80-97); RED BLOOD COUNT 3.79 10^6/uL (3.72-5.28); RED CELL DISTRIBUTION WIDTH 17.8 % (11.5-14.0); WHITE BLOOD COUNT 9.6 10^3/uL (4.0-10.5)
[2019-09-07 05:45] LABS: INTERNATIONAL RATION (INR) 1.22; PROTHROMBIN TIME 15.5 SEC (11.4-15.4)
[2019-09-07 05:49] LABS: ALBUMIN 3.5 g/dL (3.5-5.0); ALKALINE PHOSPHATASE 128 U/L (38-126); ANION GAP 7 (5-19); ASPARTATE AMINO TRANSFERASE 68 U/L (14-36); BILIRUBIN,DIRECT 1.4 mg/dL (0.0-0.4); BILIRUBIN,TOTAL 3.4 mg/dL (0.2-1.3); BLOOD UREA NITROGEN 26 mg/dL (7-20); CALCIUM 8.9 mg/dL (8.4-10.2); CARBON DIOXIDE 25 mmol/L (22-30); CHLORIDE 107 mmol/L (98-107); POTASSIUM 3.8 mmol/L (3.6-5.0); TOTAL PROTEIN 6.1 g/dL (6.3-8.2)
[2019-09-07 05:56] LABS: GLUCOSE 62 mg/dL (75-110)
[2019-09-07] MEDS ORDERED: CEFEPIME 2 GM/D5W RTU 2 GM/50 ML RTUPB IV ONE (06:02)
[2019-09-07] MEDS ORDERED: NORMAL SALINE 1000 ML 1,000 ML IV ONE (06:03)
--- NOTE | 2019-09-07 06:06 | ER Document Report ---
ED General - General Chief Complaint: Alcohol Withdrawl Stated Complaint: RESPIRATORY ISSUES Time Seen by Provider: 09/07/19 05:57 Notes: This is a 74-year-old female with morbid obesity COPD generalized weakness recent admit for pneumonia, presenting at home for shortness of breath and fever. Per EMS fever was 103 at home. Unclear if she is had Tylenol yet. There is also some report of CHF in her history, and she has had some increasing edema. She says she is on her Lasix and is taking as instructed. She said she was tested for COVID about a week and a half ago during her admission and was "clear." Of note the patient has been in the ED for 1 hour and 50 minutes when I first evaluated her, some of her orders have been fulfilled on some not. TRAVEL OUTSIDE OF THE [place] IN LAST 30 DAYS: No - Related Data Allergies/Adverse Reactions: risedronate sodium [From Actonel] Allergy (Verified 09/07/19 05:26) Heart Palpitations Past Medical History - Social History Smoking Status: Never Smoker Frequency of alcohol use: None Drug Abuse: None Family History: Arthritis, CAD, Hyperlipidemia, Hypertension, Malignancy Patient has homicidal ideation: No - Past Medical History Cardiac Medical History: Reports: Hx Heart Attack - X3 LAST IN AUGUST 2006, Hx Hypercholesterolemia - NOT ON MEDICATION, Hx Hypertension, Hx Peripheral Vascular Disease Denies: Hx Atrial Fibrillation, Hx Coronary Artery Disease, Hx Pulmonary Embolism, Hx Heart Murmur Comment Only: Hx Congestive Heart Failure - UNKNOWN Pulmonary Medical History: Reports: Hx Pneumonia, Hx Sleep Apnea - HAS CPAP Denies: Hx Asthma, Hx Bronchitis, Hx COPD, Hx Respiratory Failure, Hx Tuberculosis Neurological Medical History: Reports: Hx Cerebrovascular Accident - x3 Last in 2006....Left side Weakness). Denies: Hx Seizures, Hx Parkinson's Disease Endocrine Medical History: Denies: Hx Graves' Disease, Hx Hyperthyroidism, Hx Hypothyroidism Renal/ Medical History: Reports: Hx Ovarian Cysts. Denies: Hx End Stage Renal Disease, Hx Kidney Stones, Hx Peritoneal Dialysis, Hx Pelvic Inflammatory Dise ase Malignancy Medical History: Denies: Hx Breast Cancer, Hx Cervical Cancer, Hx Leukemia, Hx Lung Cancer, Hx Ovarian Cancer GI Medical History: Reports: Hx Gastroesophageal Reflux Disease, Hx Irritable Bowel. Denies: Hx Crohn's Disease, Hx Hiatal Hernia, Hx Liver Failure, Hx Pancreatitis, Hx Ulcer Musculoskeletal Medical History: Reports Hx Arthritis - 4 TYPES, Denies Hx Fibromyalgia, Denies Hx Multiple Sclerosis, Denies Hx Muscular Dystrophy, Denies Hx Systemic Lupus Erythematosus Psychiatric Medical History: Reports: Hx Depression - ON MEDICATIONS Denies: Hx Bipolar Disorder, Hx Dementia, Hx Post Traumatic Stress Disorder, Hx Schizophrenia Traumatic Medical History: Denies: Hx Fractures Infectious Medical History: Denies: Hx HIV Past Surgical History: Reports: Hx Appendectomy, Hx Cholecystectomy, 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 Denies: Hx Bowel Surgery, Hx Section, Hx Colostomy, Hx Coronary Artery Bypass Graft, Hx Gastric Bypass Surgery, Hx Herniorrhaphy, Hx Hysterectomy, Hx Mastectomy, Hx Pacemaker, Hx Tonsillectomy, Hx Tubal Ligation - Immunizations Hx Diphtheria, Pertussis, Tetanus Vaccination: Yes Hx Pneumococcal Vaccination: 01/12/17 Review of Systems - Review of Systems Notes: REVIEW OF SYSTEMS GEN: Fever and weakness ENT: Denies sore throat, nasal discharge, ear pain EYES: Denies blurry vision, eye pain, discharge CV: Denies chest pain, palpitations, edema RESP: Cough and shortness of breath GI: Having no pain MSK: Denies joint pain/swelling, edema, SKIN: Denies rash, skin lesions LYMPH: Denies swollen glands/lymph nodes NEURO: Denies headache, focal weakness or numbness, dizziness PSYCH: Denies depression, suicidal or homicidal ideation PHYSICAL EXAMINATION General: Appearing, debilitated and morbidly obese Head: Atraumatic, normocephalic ENT: Mouth normal, oropharynx moist, no exudates or tonsillar enlargement Eyes: Conjunctiva normal, pupils equal, lids normal Neck: No JVD, supple, no guarding CVS: Normal rate, regular rhythm, no murmurs Resp: Tachypneic no resp distress, equal and normal breath sounds bilaterally GI: Nondistended, soft, no tenderness to palpation, no rebound or guarding Ext: Lateral lower extremity obesity Back: No CVA or midline TTP Skin: No rash, warm Lymphatic: No lymphadeopathy noted Neuro: Awake, alert. Face symmetric. GCS 15. Physical Exam - Vital signs Vitals: Temp 100.8 F H 09/07/19 04:12 Course - Re-evaluation Re-evalutation: 09/07/19 09:51 Patient presents with sepsis of unclear cause. Likely urinary versus pneumonia given she had this recently but also COVID. She does not have a gallbladder and her abdominal exam is reassuring despite having some retching. She has been here for about 2 hours prior to my arrival. She has no urine sample, has had no bolus or antibiotics. I am suspicious that she could be a tad volume overloaded some but hold on fluids for now. I did write her for cefepime initially. Lactic is slightly elevated although not enough for severe sepsis and she has no evidence of organ dysfunction. I held on fluids. Her x-ray is clean without any signs of infiltrate and her COVID eventually came back negative. There was a delay in her urine but she Kirt received antibiotics and was cultured. Added on as a throw in case this is a radiographically an apparent pneumonia. There is also an elevation in her BNP and she looks volume up some going to continue to hold on IV fluids. I did a bedside echo which shows possible mild volume overload but no horribly impaired LV function or pericardial effusion. Was unable to see her gallbladder. Or right quadrant ultrasoundLFTs are mildly elevated but doubt acute cholangitis. Discussed with Dr. Kaufman and subsequently Don day for admission. - Vital Signs Vital signs: Temp Pulse Resp BP Pulse Ox 100.8 F H 15 110/67 97 09/07/19 04:12 09/07/19 09:01 09/07/19 09:01 09/07/19 09:01 - Laboratory Result Diagrams: 09/07/19 04:30 09/07/19 04:30 Laboratory results interpreted by me: 09/07/19 09/07/19 09/07/19 04:30 04:30 04:30 MCV 102 H MCH 34.6 H RDW 17.8 H Plt Count 75 L Seg Neuts % (Manual) 90 H Lymphocytes % (Manual) 7 L Abs Neuts (Manual) 8.6 H PT 15.5 H BUN Creatinine Est GFR ( Amer) Est GFR (MDRD) Non-Af Glucose Lactic Acid 2.9 H Total Bilirubin Direct Bilirubin AST ALT Alkaline Phosphatase NT-Pro-B Natriuret Pep Total Protein 09/07/19 09/07/19 04:30 04:30 MCV MCH RDW Plt Count Seg Neuts % (Manual) Lymphocytes % (Manual) Abs Neuts (Manual) PT BUN 26 H Creatinine 1.31 H Est GFR ( Amer) 48 L Est GFR (MDRD) Non-Af 40 L Glucose 62 L Lactic Acid Total Bilirubin 3.4 H Direct Bilirubin 1.4 H AST 68 H ALT 38 H Alkaline Phosphatase 128 H NT-Pro-B Natriuret Pep 1430 H Total Protein 6.1 L - Diagnostic Test Radiology reviewed: Image reviewed, Reports reviewed Critical Care Note - Critical Care Note Total time excluding time spent on procedures (mins): 34 Comments: The above patient is critically ill. Not including procedures, but including direct re-evaluations, speaking with patient and/or consultants, interpreting results, and documenting, I spent the total amount of minute listed listed above on critical care time Discharge - Discharge Clinical Impression: Sepsis Qualifiers: Sepsis type: sepsis due to unspecified organism Sepsis acute organ dysfunction status: unspecified Qualified Code(s): A41.9 - Sepsis, unspecified organism Condition: Fair Disposition: ADMITTED INPATIENT Admitting Provider: Shae (Hospitalist) Unit Admitted: Telemetry
[2019-09-07 06:11] LABS: PLATELET COUNT 75 10^3/uL (150-450)
[2019-09-07 06:19] LABS: ABSOLUTE LYMPHOCYTES# (MANUAL) 0.7 10^3/uL (0.5-4.7); ABSOLUTE MONOCYTES # (MANUAL) 0.3 10^3/uL (0.1-1.4); BASOPHILS % (MANUAL) 0 % (0-2); EOSINOPHILS % (MANUAL) 0 % (0-6); LYMPHOCYTES % (MANUAL) 7 % (13-45); MONOCYTES % (MANUAL) 3 % (3-13); SEGMENTED NEUTROPHILS % (MAN) 90 % (42-78); TOTAL CELLS COUNTED 100
[2019-09-07 06:21] LABS: ANISOCYTOSIS 1+; PLATELET COMMENT DECREASED; POIKILOCYTOSIS SLIGHT; TEAR DROP CELLS SLIGHT; TOXIC GRANULATION SLIGHT; TOXIC VACUOLATION PRESENT
[2019-09-07 07:12] LABS: TROPONIN I 0.04 ng/mL
--- NOTE | 2019-09-07 07:13 | RADIOLOGY REPORT (SQ) ---
AP Portable chest: 09/07/2019 6:12 AM CDT History: 74-year old patient with dyspnea. Comparison: Chest radiograph performed 05/19/2019. Findings: The cardiomediastinal silhouette is enlarged. No pneumothorax is seen. No discrete pleural effusion is apparent. No acute airspace opacities are seen. Impression: No acute airspace opacities are seen. The cardiomediastinal silhouette is enlarged.
[2019-09-07] MEDS ORDERED: DEXTROSE 5%-1/2 NORMAL SALINE 1,000 ML IV ONE (07:15)
--- NOTE | 2019-09-07 07:32 | EKG REPORT ---
SEVERITY:- ABNORMAL ECG - SINUS RHYTHM WITH PACS LVH WITH SECONDARY REPOLARIZATION ABNORMALITY : Confirmed by: Forrest Boucher MD 07-Sep-2019 07:31:31
[2019-09-07] MEDS ORDERED: AZITHROMYCIN INJ 500 MG VIAL IV ONE (09:15)
[2019-09-07] MEDS ORDERED: NORMAL SALINE 1000 ML 1,000 ML IV PRN (09:58)
[2019-09-07] MEDS ORDERED: IPRATROPIUM/ALBUTEROL 0.5-2.5 MG/3 ML AMPUL NEB PRN (09:58)
[2019-09-07] MEDS ORDERED: ACETAMINOPHEN 325 MG TABLET PO PRN (09:58)
[2019-09-07] MEDS ORDERED: PROMETHAZINE HCL INJ 25 MG/1 ML VIAL IV PRN (09:58)
--- NOTE | 2019-09-07 10:00 | RADIOLOGY REPORT (SQ) ---
EXAM DESCRIPTION: U/S ABDOMEN LIMITED W/O DOP IMAGES COMPLETED DATE/TIME: 09/07/2019 9:25 am REASON FOR STUDY: Vomiting, elv LFT COMPARISON: None. TECHNIQUE: Dynamic and static grayscale images acquired of the abdomen and recorded on PACS. Additio nal selected color Doppler and spectral images recorded. LIMITATIONS: None. FINDINGS: PANCREAS: The visualized portions of the pancreas appear normal. The pancreatic tail is o bscured by overlying bowel. LIVER: Increased echogenicity of hepatic parenchyma associated with attenuation of the far field. LIVER VASCULATURE: Hepatopetal directional flow in the portal veins. GALLBLADDER: The gallbladder is surgically absent. ULTRASOUND-DETECTED CLAYTON'S SIGN: Negative. INTRAHEPATIC DUCTS AND COMMON DUCT: The common bile duct measures 6.9 mm in diameter. There is no di latation of the intrahepatic bile ducts. INFERIOR VENA CAVA: The IVC is obscured by overlying bowel. AORTA: No aneurysm. RIGHT KIDNEY: The right kidney measures 9.1 cm in length. There is no hydronephrosis. PERITONEAL AND RIGHT PLEURAL SPACE: No ascites or effusions. OTHER: No other findings. IMPRESSION: 1. Increased echogenicity of hepatic parenchyma suggestive of underlying hepatic steato sis. 2. Status post cholecystectomy. The common bile duct measures 6.9 mm in diameter (which is within t he within normal limits when accounting for the patient's age and post cholecystectomy status). Ther e is no dilatation of the intrahepatic bile ducts. 3. The pancreatic tail and IVC are obscured by overlying bowel. TECHNICAL DOCUMENTATION: JOB ID: [id number] 2010 [employer]- All Rights Reserved Reading location - IP/workstation name: [email or web address]
[2019-09-07] MEDS: FAMOTIDINE 20 MG TABLET PO SCH ×2 (11:19→21:21)
[2019-09-07] MEDS: DOCUSATE SODIUM 100 MG CAPSULE PO SCH (11:19)
[2019-09-07] MEDS: FUROSEMIDE INJ/PF 20 MG/2 ML SDV IV SCH ×2 (11:20→21:21)
[2019-09-07] MEDS: METHYLPREDNISOLONE INJ 40 MG/1 ML SDV IV SCH ×2 (11:20→21:21)
[2019-09-07 12:08] LABS: AMORPHOUS SEDIMENT,URINE TRACE /HPF; APPEARANCE,URINE CLOUDY; BILIRUBIN,URINE NEGATIVE (NEGATIVE); COLOR,URINE AMBER; GLUCOSE, URINE NEGATIVE (NEGATIVE); KETONES,URINE NEGATIVE (NEGATIVE); PROTEIN,URINE 100 mg/dL (NEGATIVE); URINE SPECIFIC GRAVITY 1.016
--- NOTE | 2019-09-07 13:12 | PDOC H&P ---
History of Present Illness Admission Date/PCP: 09/07/19 09:19 HU HUGHES PA-C History of Present Illness: RU YUSUF is a 74 year old female noted through the emergency room for COPD exacerbation, generalized weakness, shortness of breath, and fever.. Tells me that for the last several days now she has been more short of breath yesterday started running a fever. Patient has a history of CHF states she has been taking her medicine as prescribed. Tells me that back in April she was admitted to [facility] for about 4 days for pneumonia.. Patient tells me now that her biggest problem is that she is falling all the time and in fact has a cast on her right wrist from a fall 1 month ago. In the emergency room her temperature was 100.8 but since then has come down to normal 98.1. White count is normal 9.6. BNP on admission 1430. Renal function appears to be at baseline creatinine 1.31 Lactic acid appears to be elevated at 2.9 on 2 separate occasions First troponin was elevated at 0.040 Analysis shows moderate blood and moderate leukocytes Covid PCR is negative Chest x-ray shows no acute cardiopulmonary disease Past Medical History Cardiac Medical History: Reports: Myocardial Infarction - X3 LAST IN AUGUST 2006, Hyperlipidema - NOT ON MEDICATION, Hypertension, Peripheral Vascular Disease Denies: Atrial Fibrillation, Coronary Artery Disease, Pulmonary Embolism, Heart Murmur Comment Only: Congestive Heart Failure - UNKNOWN Pulmonary Medical History: Reports: Pneumonia, Sleep Apnea - HAS CPAP Denies: Asthma, Bronchitis, Chronic Obstructive Pulmonary Disease (COPD), Res piratory Failure, Tuberculosis Neurological Medical History: Denies: Seizures Endocrine Medical History: Denies: Hyperthyroidism, Hypothyroidism Renal/ Medical History: Denies: End Stage Renal Disease Malignancy Medical History: Denies: Breast Cancer, Cervical Cancer, Leukemia, Lung Cancer, Ovarian Cancer GI Medical History: Reports: Gastroesophageal Reflux Disease Denies: Crohn's Disease, Hiatal Hernia Musculoskeltal Medical History: Reports: Arthritis - 4 TYPES Denies: Fibromyalgia Psychiatric Medical History: Reports: Depression - ON MEDICATIONS Denies: Bipolar Disorder, Dementia, Post Traumatic Stress Disorder Hematology: Denies: Anemia, Hemophilia, Sickle Cell Disease Infectious Medical History: Denies: HIV Past Surgical History Past Surgical History: Reports: Appendectomy, Cholecystectomy, Orthopedic Surgery - BILATERAL TOTAL KNEES Denies: Amputation, Section, Colostomy, Coronary Artery Bypass Graft, Gastric Bypass Surgery, Herniorrhaphy, Hysterectomy, Mastectomy, Pacemaker, Tonsillectomy, Tubal Ligation Social History Smoking Status: Never Smoker Frequency of Alcohol Use: None Hx Recreational Drug Use: No Hx Prescription Drug Abuse: No - Advance Directive Resuscitation Status: Do Not Resuscitate Family History Family History: Arthritis, CAD, Hyperlipidemia, Hypertension, Malignancy Parental Family History Reviewed: No Children Family History Reviewed: No Sibling(s) Family History Reviewed.: No Medication/Allergy Home Medications: Ranitidine HCl [Acid Control] 150 mg PO DAILY 10/21/12 Allopurinol 100 mg PO DAILY 10/10/14 Colchicine [Colcrys 0.6 mg Tablet] 1 tab PO DAILY 10/10/14 Cyclobenzaprine HCl 10 mg PO QHS 10/10/14 Esomeprazole Magnesium [Nexium] 40 mg PO DAILY 10/10/14 Fenofibrate 145 mg PO QHS 10/10/14 Furosemide [Lasix] 20 mg PO DAILY 10/10/14 Metoprolol Tartrate [Lopressor 50 mg Tablet] 50 mg PO DAILY 10/10/14 Pramipexole Di-HCl [Pramipexole Dihydrochloride] 0.5 mg PO QHS 10/10/14 Sertraline HCl 50 mg PO DAILY 10/10/14 Nitroglycerin [Nitrostat 0.4 mg (1/150 Gr) Tabs 25/Bottle] 0.4 mg SL ASDIR PRN 10/11/14 Simvastatin [Zocor 40 mg Tablet] 40 mg PO QHS 10/11/14 Folic Acid 1 mg PO DAILY 06/02/17 Metformin HCl 500 mg PO DAILY 06/02/17 Pickton-3 Fatty Acids/Fish Oil [Fish Oil 1,000 mg Capsule] 1 each PO TID 06/02/17 Oxycodone HCl/Acetaminophen [Oxycodone-Acetaminophen 5-325] 1 each PO ASDIR PRN 06/02/17 Tramadol HCl 50 mg PO DAILY 06/02/17 Allopurinol [Zyloprim] 1 tab PO DAILY 06/03/17 Calcium Carbonate/Vitamin D3 [Calcium 600 + Vit D Tablet] 1 tab PO DAILY 06/03/17 Gabapentin 300 mg PO QHS 06/03/17 Glipizide [Glipizide ER] 5 mg PO DAILY 06/03/17 Gluc Covarrubias/Chondro Covarrubias A/Vit C/Mn [Glucosamine Chondroitin Tab] 1 each PO DAILY 06/03/17 Hyoscyamine Sulfate 0.125 mg PO ASDIR PRN 06/03/17 Allergies/Adverse Reactions: risedronate sodium [From Actonel] Allergy (Verified 09/07/19 05:26) Heart Palpitations Review of Systems Constitutional: PRESENT: fatigue, fever(s), weakness. ABSENT: chills, headache(s), weight gain, weight loss Cardiovascular: PRESENT: dyspnea on exertion. ABSENT: chest pain, edema, orthropnea, palpitations Respiratory: PRESENT: dyspnea Neurological: ABSENT: abnormal gait, abnormal speech, confusion, dizziness, focal weakness, syncope Psychiatric: ABSENT: anxiety, depression, homidical ideation, suicidal ideation Physical Exam Vital Signs: Temp Pulse Resp BP Pulse Ox 98.8 F 16 110/58 L 96 09/07/19 12:44 09/07/19 12:31 09/07/19 12:31 09/07/19 12:31 Intake & Output 09/06/19 09/07/19 09/08/19 06:59 06:59 06:59 Intake Total 1050 Balance 1050 Weight 132.449 kg General appearance: PRESENT: mild distress - Patient appears to be short of breath with speaking Respiratory exam: PRESENT: decreased breath sounds Cardiovascular exam: PRESENT: RRR. ABSENT: diastolic murmur, rubs, systolic murmur Neurological exam: PRESENT: alert, awake, oriented to person, oriented to place, oriented to time, oriented to situation, CN II-XII grossly intact. ABSENT: motor sensory deficit Psychiatric exam: PRESENT: flat affect Results Laboratory Results: 09/07/19 04:30 09/07/19 09/07/19 09/07/19 04:30 04:30 04:30 WBC 9.6 RBC 3.79 Hgb 13.1 Hct 38.8 MCV 102 H MCH 34.6 H MCHC 33.8 RDW 17.8 H Plt Count 75 L Seg Neutrophils % Not Reportable VBG pH VBG pCO2 VBG HCO3 VBG Base Excess Sodium 138.8 Potassium 3.8 Chloride 107 Carbon Dioxide 25 Anion Gap 7 BUN 26 H Creatinine 1.31 H Est GFR ( Amer) 48 L Glucose 62 L Lactic Acid 2.9 H Calcium 8.9 Total Bilirubin 3.4 H AST 68 H Alkaline Phosphatase 128 H Total Protein 6.1 L Albumin 3.5 Urine Color Urine Appearance Urine pH Ur Specific Zap Urine Protein Urine Glucose (UA) Urine Ketones Urine Blood Urine RBC (Auto) 09/07/19 09/07/19 09/07/19 04:30 06:20 09:44 WBC RBC Hgb Hct MCV MCH MCHC RDW Plt Count Seg Neutrophils % VBG pH 7.39 VBG pCO2 37.9 VBG HCO3 22.5 VBG Base Excess -2.1 Sodium Potassium Chloride Carbon Dioxide Anion Gap BUN Creatinine Est GFR ( Amer) Glucose Lactic Acid 2.9 H Calcium Total Bilirubin AST Alkaline Phosphatase Total Protein Albumin Urine Color HORACIO Urine Appearance CLOUDY Urine pH 5.0 Ur Specific Zap 1.016 Urine Protein 100 H Urine Glucose (UA) NEGATIVE Urine Ketones NEGATIVE Urine Blood MODERATE H Urine RBC (Auto) 21 09/07/19 04:30 Troponin I 0.040 NT-Pro-B Natriuret Pep 1430 H Impressions: Abdomen Ultrasound 09/07/19 07:35 IMPRESSION: 1. Increased echogenicity of hepatic parenchyma suggestive of underlying hepatic steatosis. 2. Status post cholecystectomy. The common bile duct measures 6.9 mm in diam eter (which is within the within normal limits when accounting for the patient's age and post cholecystectomy status). There is no dilatation of the intrahepatic bile ducts. 3. The pancreatic tail and IVC are obscured by overlying bowel. Assessment and Plan - Diagnosis (1) Recurrent falls Is this a current diagnosis for this admission?: Yes (2) COPD exacerbation Is this a current diagnosis for this admission?: Yes (3) CHF (congestive heart failure) Is this a current diagnosis for this admission?: Yes (4) UTI (urinary tract infection) Is this a current diagnosis for this admission?: Yes (5) Morbid obesity with BMI of 45.0-49.9, adult Is this a current diagnosis for this admission?: Yes - Plan Summary Summary: 09/07/2019 Patient's history is somewhat confusing as to whether or not this is a COPD exacerbation or early mild congestive failure. And I think it is more of a COPD exacerbation because the patient was febrile, chest x-ray shows no overt failure, BNP is slightly elevated Going to treat with IV Lasix and Solu-Medrol. We will also cover with IV antibiotics Zithromax and Rocephin pending urine culture and further work-up Will order an echocardiogram. Patient states she would like shelter or rehab at time of discharge. She states she wants to be a DNR. Patient appears to be medically stable to transfer to the floor - Time Time Spent with patient: 35 or more minutes
[2019-09-07 13:29] LABS: CREATINE KINASE MB 0.98 ng/mL (<4.55); TROPONIN I 0.033 ng/mL
[2019-09-07 13:42] LABS: CARBON DIOXIDE 22 mmol/L (22-30); CHLORIDE 107 mmol/L (98-107)
[2019-09-07 13:43] LABS: BLOOD UREA NITROGEN 33 mg/dL (7-20); CALCIUM 8.5 mg/dL (8.4-10.2); GLUCOSE 204 mg/dL (75-110); POTASSIUM 4.2 mmol/L (3.6-5.0)
[2019-09-07 13:44] LABS: ANION GAP 7 (5-19)
[2019-09-07] MEDS: HEPARIN SOD (PORCINE) 5,000 UNIT/ML 1 ML VIAL SUBCUT SCH ×2 (13:49→21:18)
[2019-09-07 17:03] LABS: CREATINE KINASE MB 0.99 ng/mL (<4.55); TROPONIN I 0.021 ng/mL
[2019-09-07] MEDS: CEFEPIME HCL 2 GM in DEXTROSE 5%-WATER 50 ML IV SCH (17:07)
[2019-09-07] MEDS ORDERED: CEFEPIME 2 GM/D5W RTU 2 GM/50 ML RTUPB IV SCH (18:00)
[2019-09-07 23:40] LABS: CREATINE KINASE MB 0.93 ng/mL (<4.55); TROPONIN I 0.012 ng/mL
[2019-09-08] MEDS: HEPARIN SOD (PORCINE) 5,000 UNIT/ML 1 ML VIAL SUBCUT SCH ×3 (05:01→21:35)
[2019-09-08] MEDS: CEFEPIME HCL 2 GM in DEXTROSE 5%-WATER 50 ML IV SCH ×2 (05:02→17:58)
[2019-09-08 06:05] LABS: ABSOLUTE LYMPHOCYTES (AUTO) 0.8 10^3/uL (0.5-4.7); ABSOLUTE MONOCYTES (AUTO) 0.6 10^3/uL (0.1-1.4); ABSOLUTE NEUT (AUTO) 10.4 10^3/uL (1.7-8.2); BASOPHILS % (AUTO) 0.3 % (0-2); HEMATOCRIT 34.5 % (36.0-47.0); HEMOGLOBIN 11.7 g/dL (12.0-15.5); LYMPHOCYTES % (AUTO) 6.7 % (13-45); MEAN CORPUSCULAR HEMOGLOBIN 34.7 pg (27.0-33.4); MEAN CORPUSCULAR HGB CONC 34.1 g/dL (32.0-36.0); MEAN CORPUSCULAR VOLUME 102 fl (80-97); MONOCYTES % (AUTO) 5.1 % (3-13); RED BLOOD COUNT 3.39 10^6/uL (3.72-5.28); RED CELL DISTRIBUTION WIDTH 17.8 % (11.5-14.0); SEGMENTED NEUTROPHILS % (AUTO) 87.9 % (42-78); TOTAL CELLS COUNTED % (AUTO) 100 %; WHITE BLOOD COUNT 11.8 10^3/uL (4.0-10.5)
[2019-09-08 06:28] LABS: PLATELET COUNT 54 10^3/uL (150-450)
[2019-09-08] MEDS: FUROSEMIDE INJ/PF 20 MG/2 ML SDV IV SCH ×2 (09:34→21:43)
[2019-09-08] MEDS: METHYLPREDNISOLONE INJ 40 MG/1 ML SDV IV SCH ×2 (09:34→21:43)
[2019-09-08] MEDS: FAMOTIDINE 20 MG TABLET PO SCH ×2 (09:38→21:43)
[2019-09-08] MEDS: DOCUSATE SODIUM 100 MG CAPSULE PO SCH (09:38)
[2019-09-08] MEDS: AZITHROMYCIN 500 MG in DEXTROSE 5%-WATER 250 ML IV SCH (09:39)
--- NOTE | 2019-09-08 13:01 | CDI QUERY ---
CDI Query CDI Review: Dear Provider: To better reflect your patients severity of illness, morbidity, and resource utilization Please specify and document in the Progress Notes and Discharge Summary if you are monitoring / treating / evaluating any of the following conditions: Query Clinical indicators Please specify the type and acuity of heart failure in your Progress Notes: Type Systolic Diastolic Combined systolic and diastolic Other heart failure (please specify) Unable to determine Acuity Acute Chronic Acute on chronic (decompensated , exacerbated) Unable to determine Per H&P: Patient's history is somewhat confusing as to whether or not this is a COPD exacerbation or early mild congestive failure. And I think it is more of a COPD exacerbation because the patient was febrile, chest x-ray shows no overt failure, BNP is slightly elevated Going to treat with IV Lasix and Solu-Medrol. We will also cover with IV antibiotics Zithromax and Rocephin pending urine culture and further work-up Will order an echocardiogram. The terms probable, suspected, likely, possible or still to be ruled out may be used if you are unable to determine the exact nature of a condition. Thank you for your consideration, Clinical Documentation Physician Advisors IAN Uriostegui RN, BSN RN Office [phone] Office [phone]
--- NOTE | 2019-09-08 16:22 | PDOC PROGRESS REPORT ---
Subjective Progress Note for:: 09/08/19 Reason For Visit: FEVER, SHORTNESS OF BREATH, FREQUENT FALLS, COPD 09/08/2019 The OPD exacerbation, generalized weakness, shortness of breath, fevers Physical Exam Vital Signs: Temp Pulse Resp BP Pulse Ox 98.2 F 82 18 101/54 L 99 09/08/19 11:33 09/08/19 11:33 09/08/19 11:33 09/08/19 11:33 09/08/19 11:33 Intake & Output 09/07/19 09/08/19 09/09/19 06:59 06:59 06:59 Intake Total 1490 490 Balance 1490 490 Weight 132.449 kg 134.8 kg General appearance: PRESENT: mild distress - Patient states she is still short of breath but feels better than admission Respiratory exam: PRESENT: decreased breath sounds Cardiovascular exam: PRESENT: RRR. ABSENT: diastolic murmur, rubs, systolic murmur Neurological exam: PRESENT: alert, awake, oriented to person, oriented to place, oriented to time, oriented to situation, CN II-XII grossly intact. ABSENT: motor sensory deficit Psychiatric exam: PRESENT: appropriate affect, normal mood. ABSENT: homicidal i deation, suicidal ideation Results Laboratory Results: 09/08/19 05:13 09/07/19 12:40 09/08/19 09/08/19 05:13 05:13 WBC 11.8 H RBC 3.39 L Hgb 11.7 L Hct 34.5 L MCV 102 H MCH 34.7 H MCHC 34.1 RDW 17.8 H Plt Count 54 L Seg Neutrophils % 87.9 H Magnesium 2.3 09/07/19 04:30 Blood Blood Culture (PCR) - Final Escherichia Coli 09/07/19 09/07/19 09/07/19 04:30 12:40 16:18 CK-MB (CK-2) 0.98 0.99 Troponin I 0.040 0.033 0.021 NT-Pro-B Natriuret Pep 1430 H 09/07/19 09/08/19 22:23 05:13 CK-MB (CK-2) 0.93 Troponin I 0.012 NT-Pro-B Natriuret Pep 1840 H Impressions: Abdomen Ultrasound 09/07/19 07:35 IMPRESSION: 1. Increased echogenicity of hepatic parenchyma suggestive of underlying hepatic steatosis. 2. Status post cholecystectomy. The common bile duct measures 6.9 mm in jose elias meter (which is within the within normal limits when accounting for the patient's age and post cholecystectomy status). There is no dilatation of the intrahepatic bile ducts. 3. The pancreatic tail and IVC are obscured by overlying bowel. Assessment and Plan - Diagnosis (1) Recurrent falls Is this a current diagnosis for this admission?: Yes (2) COPD exacerbation Is this a current diagnosis for this admission?: Yes (3) CHF (congestive heart failure) Is this a current diagnosis for this admission?: Yes (4) UTI (urinary tract infection) Is this a current diagnosis for this admission?: Yes (5) Morbid obesity with BMI of 45.0-49.9, adult Is this a current diagnosis for this admission?: Yes - Plan Summary Summary: 09/07/2019 Patient's history is somewhat confusing as to whether or not this is a COPD exacerbation or early mild congestive failure. And I think it is more of a COPD exacerbation because the patient was febrile, chest x-ray shows no overt failure, BNP is slightly elevated Going to treat with IV Lasix and Solu-Medrol. We will also cover with IV antibiotics Zithromax and Rocephin pending urine culture and further work-up Will order an echocardiogram. Patient states she would like longterm or rehab at time of discharge. She states she wants to be a DNR. Patient appears to be medically stable to transfer to the floor 09/08/2019 Vital signs are stable temperature 98 pulse 72 blood pressure 113/69 O2 sat between 95 and 97% on anywhere from 0.5 up to 2 L nasal cannula CBC this morning shows white count 11.8 BNP is up from [id number] electrolytes are otherwise normal Patient is growing out E. coli in her blood cultures as well as gram-negative rods in her urine and is currently on cefepime and Zithromax Other IV meds include Lasix 20 mg every 12 hours and Solu-Medrol 40 mg every 12 hours Currently unable to determine the type of congestive heart failure or the acuity - Time Time Spent with patient: 25-34 minutes
--- NOTE | 2019-09-08 23:51 | XCELERA REPORT ---
[address] [address] Transthoracic Echocardiogram Report Name: RU YUSUF Age: 74 yrs Gender: Female : 1945 Patient Status: Inpatient Patient Location: [address] [place] [address] Study Date: 09/08/2019 09:22 AM Height: 62 in Weight: 292 lb BSA: 2.2 m2 Procedure: A two-dimensional transthoracic echocardiogram with color flow and Doppler was performed. Study Quality: Fair. Reason For Study: History of congestive heart failure History: History of congestive heart failure. Ordering Physician: SINA HERNANDEZ Performed By: Dixie Longoria Interpretation Summary Study Quality: Fair. The left ventricle is normal in size. There is normal left ventricular wall thickness. LV EF is 70% Left ventricular systolic function is normal. Doppler measurements suggest normal left ventricular diastolic function The left ventricular wall motion is normal. There is no thrombus. No ASD,VSD,or PFO seen. The right ventricle is not well visualized secondary to technical limitations The right atrium is normal. The left atrium is mildly dilated. There is no evidence of mitral valve prolapse. There is no vegetation seen on the mitral valve. There is no mitral valve stenosis. There is a trace amount of mitral regurgitation There is no aortic valve stenosis There is no LVOT obstruction. No aortic regurgitation is present. There is no tricuspid stenosis. There is a mild amount of tricuspid regurgitation There is mild pulmonary hypertension by echo RVSP is 39 to 44 mm of Hg , with RA mean of 5 to 110. There is no pulmonic valvular stenosis. There is no pulmonic valvular regurgitation. The aortic root is not well visualized but is probably normal size. The inferior vena cava appeared normal and decreased > 50% with respiration (RAP 5-10 mmHg) There is no pericardial effusion. MMode/2D Measurements & Calculations RVDd: 3.6 cm LVIDd: 5.3 cm FS: 39.9 % Ao root diam: 2.6 cm IVSd: 0.99 cm LVIDs: 3.2 cm EDV(Teich): 135.3 ml Ao root area: 5.4 cm2 LVPWd: 1.00 cm ESV(Teich): 40.4 ml EF(Teich): 70.1 % Doppler Measurements & Calculations MV E max carlota: MV dec slope: Ao V2 max: LV V1 max P.1 cm/sec 797.2 cm/sec2 169.5 cm/sec 6.3 mmHg MV A max carlota: MV dec time: 0.15 secAo max PG: LV V1 max: 95.4 cm/sec 11.5 mmHg 125.8 cm/sec MV E/A: 1.2 PA V2 max: TR max carlota: 93.9 cm/sec 289.0 cm/sec PA max P.5 mmHg TR max P.5 mmHg Left Ventricle The left ventricle is normal in size. There is normal left ventricular wall thickness. LV EF is 70%. Left ventricular systolic function is normal. Doppler measurements suggest normal left ventricular diastolic function. The left ventricular wall motion is normal. There is no thrombus. No ASD,VSD,or PFO seen. Right Ventricle The right ventricle is normal in size and function. The right ventricle is not well visualized secondary to technical limitations. Atria The right atrium is normal. The left atrium is mildly dilated. Mitral Valve There is no evidence of mitral valve prolapse. There is no vegetation seen on the mitral valve. There is no mitral valve stenosis. There is a trace amount of mitral regurgitation. Aortic Valve There is no aortic valvular vegetation. There is no aortic valve stenosis. There is no LVOT obstruction. No aortic regurgitation is present. Tricuspid Valve There is no tricuspid stenosis. There is a mild amount of tricuspid regurgitation. There is mild pulmonary hypertension by echo. RVSP is 39 to 44 mm of Hg , with RA mean of 5 to 110. Pulmonic Valve There is no pulmonic valvular stenosis. There is no pulmonic valvular regurgitation. Great Vessels The aortic root is not well visualized but is probably normal size. The inferior vena cava appeared normal and decreased > 50% with respiration (RAP 5-10 mmHg). Effusions There is no pericardial effusion. : SINA HERNANDEZ Lakshmi
[2019-09-09] MEDS: CEFEPIME HCL 2 GM in DEXTROSE 5%-WATER 50 ML IV SCH (05:01)
[2019-09-09] MEDS: HEPARIN SOD (PORCINE) 5,000 UNIT/ML 1 ML VIAL SUBCUT SCH ×3 (05:10→21:07)
[2019-09-09 06:16] LABS: ABSOLUTE LYMPHOCYTES (AUTO) 0.9 10^3/uL (0.5-4.7); ABSOLUTE MONOCYTES (AUTO) 0.6 10^3/uL (0.1-1.4); ABSOLUTE NEUT (AUTO) 9.5 10^3/uL (1.7-8.2); BASOPHILS % (AUTO) 0.3 % (0-2); HEMATOCRIT 36.1 % (36.0-47.0); HEMOGLOBIN 12.1 g/dL (12.0-15.5); MEAN CORPUSCULAR HEMOGLOBIN 33.9 pg (27.0-33.4); MEAN CORPUSCULAR HGB CONC 33.6 g/dL (32.0-36.0); MEAN CORPUSCULAR VOLUME 101 fl (80-97); MONOCYTES % (AUTO) 5.2 % (3-13); RED BLOOD COUNT 3.58 10^6/uL (3.72-5.28); RED CELL DISTRIBUTION WIDTH 17.4 % (11.5-14.0); SEGMENTED NEUTROPHILS % (AUTO) 86.5 % (42-78); TOTAL CELLS COUNTED % (AUTO) 100 %
[2019-09-09 06:45] LABS: PLATELET COUNT 61 10^3/uL (150-450)
[2019-09-09] MEDS: METHYLPREDNISOLONE INJ 40 MG/1 ML SDV IV SCH ×2 (09:16→21:07)
[2019-09-09] MEDS: AZITHROMYCIN 500 MG in DEXTROSE 5%-WATER 250 ML IV SCH (09:16)
[2019-09-09] MEDS: FUROSEMIDE INJ/PF 20 MG/2 ML SDV IV SCH ×2 (09:16→21:06)
[2019-09-09] MEDS: DOCUSATE SODIUM 100 MG CAPSULE PO SCH (09:16)
[2019-09-09] MEDS: FAMOTIDINE 20 MG TABLET PO SCH ×2 (09:17→21:07)
[2019-09-09] MEDS: OXYCODONE-ACETAMINOPHEN 5-325 MG TABLET PO PRN ×2 (11:46→21:07)
--- NOTE | 2019-09-09 15:30 | PDOC PROGRESS REPORT ---
Subjective Progress Note for:: 09/09/19 Reason For Visit: FEVER, SHORTNESS OF BREATH, FREQUENT FALLS, COPD 09/09/2019 Patient admitted for COPD exacerbation generalized weakness shortness of breath and fevers Physical Exam Vital Signs: Temp Pulse Resp BP Pulse Ox 97.7 F 89 19 110/74 97 09/09/19 11:01 09/09/19 11:01 09/09/19 11:01 09/09/19 11:01 09/09/19 11:01 Intake & Output 09/08/19 09/09/19 09/10/19 06:59 06:59 06:59 Intake Total 1490 1330 250 Balance 1490 1330 250 Weight 134.8 kg 136.6 kg General appearance: PRESENT: no acute distress - Sleeping comfortably and arouses easily Respiratory exam: PRESENT: decreased breath sounds Cardiovascular exam: PRESENT: RRR. ABSENT: diastolic murmur, rubs, systolic murmur Neurological exam: PRESENT: alert, awake, oriented to person, oriented to place, oriented to time, oriented to situation, CN II-XII grossly intact. ABSENT: motor sensory deficit Psychiatric exam: PRESENT: appropriate affect, normal mood. ABSENT: homicidal ideation, suicidal ideation Results Laboratory Results: 09/09/19 05:24 09/07/19 12:40 09/09/19 05:24 WBC 11.0 H RBC 3.58 L Hgb 12.1 Hct 36.1 MCV 101 H MCH 33.9 H MCHC 33.6 RDW 17.4 H Plt Count 61 L Seg Neutrophils % 86.5 H 09/07/19 06:35 Blood Blood Culture (PCR) - Final Escherichia Coli 09/07/19 06:35 Blood Blood Culture - Final Escherichia Coli 09/07/19 04:30 Blood Blood Culture (PCR) - Final Escherichia Coli 09/07/19 04:30 Blood Blood Culture - Final Escherichia Coli 09/07/19 06:20 Catheterized Urine Urine Culture - Final Escherichia Coli 09/07/19 09/07/19 09/07/19 04:30 12:40 16:18 CK-MB (CK-2) 0.98 0.99 Troponin I 0.040 0.033 0.021 NT-Pro-B Natriuret Pep 1430 H 09/07/19 09/08/19 09/09/19 22:23 05:13 05:24 CK-MB (CK-2) 0.93 Troponin I 0.012 NT-Pro-B Natriuret Pep 1840 H 1350 H Impressions: Abdomen Ultrasound 09/07/19 07:35 IMPRESSION: 1. Increased echogenicity of hepatic parenchyma suggestive of underlying hepatic steatosis. 2. Status post cholecystectomy. The common bile duct measures 6.9 mm in diameter (which is within the within normal limits when accounting for the patient's age and post cholecystectomy status). There is no dilatation of the intrahepatic bile ducts. 3. The pancreatic tail and IVC are obscured by overlying bowel. Assessment and Plan - Diagnosis (1) Recurrent falls Is this a current diagnosis for this admission?: Yes (2) COPD exacerbation Is this a current diagnosis for this admission?: Yes (3) CHF (congestive heart failure) Is this a current diagnosis for this admission?: Yes (4) UTI (urinary tract infection) Is this a current diagnosis for this admission?: Yes (5) Morbid obesity with BMI of 45.0-49.9, adult Is this a current diagnosis for this admission?: Yes - Plan Summary Summary: 09/07/2019 Patient's history is somewhat confusing as to whether or not this is a COPD exacerbation or early mild congestive failure. And I think it is more of a COPD exacerbation because the patient was febrile, chest x-ray shows no overt failure, BNP is slightly elevated Going to treat with IV Lasix and Solu-Medrol. We will also cover with IV antibiotics Zithromax and Rocephin pending urine culture and further work-up Will order an echocardiogram. Patient states she would like nursing home or rehab at time of discharge. She states she wants to be a DNR. Patient appears to be medically stable to transfer to the floor 09/08/2019 Vital signs are stable temperature 98 pulse 72 blood pressure 113/69 O2 sat between 95 and 97% on anywhere from 0.5 up to 2 L nasal cannula CBC this morning shows white count 11.8 BNP is up from 4013-8667 electrolytes are otherwise normal Patient is growing out E. coli in her blood cultures as well as gram-negative rods in her urine and is currently on cefepime and Zithromax Other IV meds include Lasix 20 mg every 12 hours and Solu-Medrol 40 mg every 12 hours Currently unable to determine the type of congestive heart failure or the acuity 09/09/2019 On admission BNP was 1430 went to 1840 now back down to 1350 Echo showed preserved ejection fracture 70% chest x-ray was negative Temperature 98.1 pulse 73 blood pressure 122/56 O2 sat 97 to 99% on 2 L Blood cultures positive for E. coli urine culture positive for E. coli. Both organisms sensitive to cefepime which she is on day 3 Will DC the Zithromax switch her to Rocephin 2 g daily, which is also appropriate ABX White blood cell count remained stable 11,000 Chest x-ray on admission showed no acute disease Patient can go to nursing home facility on either Friday or Friday we will go ahead and test for COVID today - Time Time Spent with patient: 25-34 minutes
[2019-09-09] MEDS ORDERED: NITROGLYCERIN 0.4 MG/TAB 25 TAB/BOTTLE ONE (22:48)
[2019-09-09] MEDS ORDERED: MORPHINE SULFATE 10 MG/ML INJ ONE (23:17)
[2019-09-10 00:16] LABS: CREATINE KINASE MB 1.51 ng/mL (<4.55); TROPONIN I 0.014 ng/mL
[2019-09-10] MEDS ORDERED: NITROGLYCERIN 0.4 MG/TAB 25 TAB/BOTTLE SL PRN (00:33)
[2019-09-10] MEDS ORDERED: MORPHINE SULFATE 10 MG/ML INJ IV PRN ×3 (00:33)
[2019-09-10] MEDS: HEPARIN SOD (PORCINE) 5,000 UNIT/ML 1 ML VIAL SUBCUT SCH ×3 (05:04→21:22)
[2019-09-10 06:03] LABS: ABSOLUTE MONOCYTES (AUTO) 0.9 10^3/uL (0.1-1.4); ABSOLUTE NEUT (AUTO) 11.7 10^3/uL (1.7-8.2); BASOPHILS % (AUTO) 0.1 % (0-2); EOSINOPHILS % (AUTO) 0.1 % (0-6); HEMATOCRIT 36.5 % (36.0-47.0); HEMOGLOBIN 12.1 g/dL (12.0-15.5); LYMPHOCYTES % (AUTO) 7.6 % (13-45); MEAN CORPUSCULAR HEMOGLOBIN 33.5 pg (27.0-33.4); MEAN CORPUSCULAR HGB CONC 33.3 g/dL (32.0-36.0); MEAN CORPUSCULAR VOLUME 101 fl (80-97); MONOCYTES % (AUTO) 6.3 % (3-13); RED BLOOD COUNT 3.62 10^6/uL (3.72-5.28); RED CELL DISTRIBUTION WIDTH 17.5 % (11.5-14.0); SEGMENTED NEUTROPHILS % (AUTO) 85.9 % (42-78); TOTAL CELLS COUNTED % (AUTO) 100 %; WHITE BLOOD COUNT 13.7 10^3/uL (4.0-10.5)
[2019-09-10 06:23] LABS: PLATELET COUNT 69 10^3/uL (150-450)
[2019-09-10 06:26] LABS: CREATINE KINASE MB 1.37 ng/mL (<4.55); NT PRO BNP 1250 pg/mL (<125)
[2019-09-10 06:32] LABS: TROPONIN I < 0.012 ng/mL
--- NOTE | 2019-09-10 07:33 | EKG REPORT ---
SEVERITY:- ABNORMAL ECG - SINUS RHYTHM LVH BY VOLTAGE CONSIDER ANTEROSEPTAL INFARCT : Confirmed by: Forrest Boucher MD 10-Sep-2019 07:32:41
[2019-09-10] MEDS: DOCUSATE SODIUM 100 MG CAPSULE PO SCH (09:19)
[2019-09-10] MEDS: FAMOTIDINE 20 MG TABLET PO SCH ×2 (09:19→21:23)
[2019-09-10] MEDS: FUROSEMIDE INJ/PF 20 MG/2 ML SDV IV SCH ×2 (09:19→21:22)
[2019-09-10] MEDS: METHYLPREDNISOLONE INJ 40 MG/1 ML SDV IV SCH ×2 (09:19→21:22)
[2019-09-10] MEDS: CEFTRIAXONE 2 GM/D5W RTU 2 GM/50 ML RTUPB IV SCH (09:20)
--- NOTE | 2019-09-10 09:45 | PDOC PROGRESS REPORT ---
Subjective Progress Note for:: 09/10/19 Reason For Visit: FEVER, SHORTNESS OF BREATH, FREQUENT FALLS, COPD 09/10/2019 Generalized weakness, shortness of breath, fever, COPD exacerbation admitted on 09/07/2019 Physical Exam Vital Signs: Temp Pulse Resp BP Pulse Ox 97.7 F 70 16 142/65 H 96 09/10/19 07:35 09/10/19 07:35 09/10/19 07:35 09/10/19 07:35 09/10/19 07:35 Intake & Output 09/09/19 09/10/19 09/11/19 06:59 06:59 06:59 Intake Total 1330 1370 Output Total 700 Balance 1330 670 Weight 136.6 kg 139.2 kg General appearance: PRESENT: no acute distress, other - Leaping but arouses easily Respiratory exam: PRESENT: decreased breath sounds Cardiovascular exam: PRESENT: RRR. ABSENT: diastolic murmur, rubs, systolic murmur Neurological exam: PRESENT: alert, awake, oriented to person, oriented to place, oriented to time, oriented to situation, CN II-XII grossly intact. ABSENT: motor sensory deficit Psychiatric exam: PRESENT: appropriate affect, normal mood. ABSENT: homicidal ideation, suicidal ideation Results Laboratory Results: 09/10/19 05:30 09/07/19 12:40 09/10/19 05:30 WBC 13.7 H RBC 3.62 L Hgb 12.1 Hct 36.5 MCV 101 H MCH 33.5 H MCHC 33.3 RDW 17.5 H Plt Count 69 L Seg Neutrophils % 85.9 H 09/07/19 06:35 Blood Blood Culture (PCR) - Final Escherichia Coli 09/07/19 06:35 Blood Blood Culture - Final Escherichia Coli 09/07/19 04:30 Blood Blood Culture (PCR) - Final Escherichia Coli 09/07/19 04:30 Blood Blood Culture - Final Escherichia Coli 09/07/19 06:20 Catheterized Urine Urine Culture - Final Escherichia Coli 09/07/19 09/07/19 09/07/19 04:30 12:40 16:18 Creatine Kinase CK-MB (CK-2) 0.98 0.99 Troponin I 0.040 0.033 0.021 NT-Pro-B Natriuret Pep 1430 H 09/07/19 09/08/19 09/09/19 22:23 05:13 05:24 Creatine Kinase CK-MB (CK-2) 0.93 Troponin I 0.012 NT-Pro-B Natriuret Pep 1840 H 1350 H 09/09/19 09/09/19 09/10/19 23:42 23:42 05:30 Creatine Kinase 55 CK-MB (CK-2) 1.51 1.37 Troponin I 0.014 < 0.012 NT-Pro-B Natriuret Pep 1250 H 09/10/19 05:30 Creatine Kinase 50 CK-MB (CK-2) Troponin I NT-Pro-B Natriuret Pep Impressions: Abdomen Ultrasound 09/07/19 07:35 IMPRESSION: 1. Increased echogenicity of hepatic parenchyma suggestive of underlying hepatic steatosis. 2. Status post cholecystectomy. The common bile duct measures 6.9 mm in diameter (which is within the within normal limits when accounting for the patient's age and post cholecystectomy status). There is no dilatation of the intrahepatic bile ducts. 3. The pancreatic tail and IVC are obscured by overlying bowel. Assessment and Plan - Diagnosis (1) Recurrent falls Is this a current diagnosis for this admission?: Yes (2) COPD exacerbation Is this a current diagnosis for this admission?: Yes (3) CHF (congestive heart failure) Is this a current diagnosis for this admission?: Yes (4) UTI (urinary tract infection) Is this a current diagnosis for this admission?: Yes (5) Morbid obesity with BMI of 45.0-49.9, adult Is this a current diagnosis for this admission?: Yes - Plan Summary Summary: 09/07/2019 Patient's history is somewhat confusing as to whether or not this is a COPD exacerbation or early mild congestive failure. And I think it is more of a COPD exacerbation because the patient was febrile, chest x-ray shows no overt failure, BNP is slightly elevated Going to treat with IV Lasix and Solu-Medrol. We will also cover with IV antibiotics Zithromax and Rocephin pending urine culture and further work-up Will order an echocardiogram. Patient states she would like intermediate or rehab at time of discharge. She states she wants to be a DNR. Patient appears to be medically stable to transfer to the floor 09/08/2019 Vital signs are stable temperature 98 pulse 72 blood pressure 113/69 O2 sat between 95 and 97% on anywhere from 0.5 up to 2 L nasal cannula CBC this morning shows white count 11.8 BNP is up from 8706-5577 electrolytes are otherwise normal Patient is growing out E. coli in her blood cultures as well as gram-negative rods in her urine and is currently on cefepime and Zithromax Other IV meds include Lasix 20 mg every 12 hours and Solu-Medrol 40 mg every 12 hours Currently unable to determine the type of congestive heart failure or the acuity 09/09/2019 On admission BNP was 1430 went to 1840 now back down to 1350 Echo showed preserved ejection fracture 70% chest x-ray was negative Temperature 98.1 pulse 73 blood pressure 122/56 O2 sat 97 to 99% on 2 L Blood cultures positive for E. coli urine culture positive for E. coli. Both organisms sensitive to cefepime which she is on day 3 Will DC the Zithromax switch her to Rocephin 2 g daily, which is also appropriate ABX White blood cell count remained stable 11,000 Chest x-ray on admission showed no acute disease Patient can go to intermediate facility on either Friday or Friday we will go ahead and test for COVID today 09/10/2019 Temperature 97.7 pulse 71 blood pressure 144/71 O2 sat 95% on 2 L Patient uses CPAP prior to admission Patient's white count is gone up slightly to 13,700 but she is on IV steroids BNP on admission was 1430 went up to 1840 then down to 1350 and today is down to 1250 Patient appears to have a UTI and bacteremia secondary to E. coli I can switch patient to p.o. Omnicef 300 mg twice daily for total of 14 days antibiotics, patient will need 10 more days from today , with EOT 09/20/2019 Patient medically stable for discharge whenever she is excepted - Time Time Spent with patient: 25-34 minutes
--- NOTE | 2019-09-10 11:25 | RADIOLOGY REPORT (SQ) ---
EXAM DESCRIPTION: PICC INSERTION IMAGES COMPLETED DATE/TIME: 09/10/2019 11:06 am REASON FOR STUDY: 2 weeks IV antibiotics COMPARISON: None. FLUOROSCOPY TIME: 1 minutes 6 seconds of fluoroscopy was used. 1 images saved to PACS. TECHNIQUE: Fluoroscopic and ultrasound guided PICC placement. LIMITATIONS: None. PROCEDURE: After written consent and assessment were obtained, the patient was brought into the fluo roscopy room and placed supine on the table. Ultrasound evaluation of potential access sites were per formed. After successfully identifying a patent left basilic vein, the left arm was prepped and drape d in a sterile fashion along with the ultrasound probe. The entry site was anesthetized with 1% lidoc devonte. A 21 gauge 7 cm needle was advanced through the skin and into the basilic vein under live ultra sound guidance. An ultrasound image was saved to PACS confirming access site. A .018 guide wire was then inserted through the needle and into the venous system. The needle was then removed and an 11 b lade scalpel was used to make a 1cm skin incision. A 5 fr peel-away sheath was advanced over the wir e and into the venous system. A measurement was then made using the existing wire and live fluoroscop ic guidance. The wire was then removed and trimmed. The PICC was advanced through the peel-away sheat h and into the venous system. The peel-away sheath was removed and the catheter was adhered to the pa tients arm with a stat lock. The catheter was then aspirated and flushed and a sterile bandage was pl aced over the access site. A fluoroscopic spot image was saved to PACS confirming the catheter tip w ithin the superior vena cava. IMPRESSION: SUCCESSFUL PLACEMENT OF A 5 FR DUAL LUMEN 42 CM PICC IN THE LEFT BASILIC VEIN. COMMENT: Patient medication list reviewed: Yes- Quality ID# 130:Eligible professional attests to doc umenting in the medical record they obtained, updated, or reviewed the patient's current medications. . Quality ID 145: Final reports for procedures using fluoroscopy that document radiation exposure larry amber, or exposure time and number of fluorographic images (if radiation exposure indices are not avail able) Quality ID #76: The patient was prepped and draped using maximum sterile barrier technique including cap, mask, sterile gown, sterile gloves, a large sterile sheet, hand hygiene, and 2% Chlorhexidine fo r cutaneous antisepsis. When ultrasound is used, sterile ultrasound techniques are followed requiring sterile gel and sterile probes. TECHNICAL DOCUMENTATION: JOB ID: [id number] 2010 [employer]- All Rights Reserved rev-08/29 Reading location - IP/workstation name: [id number]
[2019-09-10 12:13] LABS: CREATINE KINASE MB 1.46 ng/mL (<4.55)
[2019-09-10 12:17] LABS: TROPONIN I < 0.012 ng/mL
[2019-09-10] MEDS: OXYCODONE-ACETAMINOPHEN 5-325 MG TABLET PO PRN (16:14)
[2019-09-10] MEDS: NORMAL SALINE 10 ML SDV (SCHEDULED) IV SCH (21:23)
[2019-09-11] MEDS: HEPARIN SOD (PORCINE) 5,000 UNIT/ML 1 ML VIAL SUBCUT SCH ×3 (05:37→22:03)
[2019-09-11] MEDS: OXYCODONE-ACETAMINOPHEN 5-325 MG TABLET PO PRN ×2 (10:18→17:47)
[2019-09-11] MEDS: DOCUSATE SODIUM 100 MG CAPSULE PO SCH ×2 (10:19→17:48)
[2019-09-11] MEDS: FAMOTIDINE 20 MG TABLET PO SCH ×2 (10:19→22:04)
[2019-09-11] MEDS: CEFTRIAXONE 2 GM/D5W RTU 2 GM/50 ML RTUPB IV SCH (10:19)
[2019-09-11] MEDS: FUROSEMIDE INJ/PF 20 MG/2 ML SDV IV SCH ×2 (10:20→22:03)
[2019-09-11] MEDS: METHYLPREDNISOLONE INJ 40 MG/1 ML SDV IV SCH ×2 (10:20→22:04)
[2019-09-11] MEDS: NORMAL SALINE 10 ML SDV (SCHEDULED) IV SCH ×2 (10:28→22:03)
[2019-09-11] MEDS ORDERED: CYCLOBENZAPRINE HCL 10 MG TABLET PO PRN (11:41)
--- NOTE | 2019-09-11 11:43 | PDOC PROGRESS REPORT ---
Subjective Progress Note for:: 09/11/19 Reason For Visit: FEVER, SHORTNESS OF BREATH, FREQUENT FALLS, COPD 09/11/2019 Patient was admitted on 09/07/2019 for fever, shortness of breath, frequent falls, COPD exacerbation, status post right wrist fracture 3 weeks ago Physical Exam Vital Signs: Temp Pulse Resp BP Pulse Ox 97.3 F 70 20 168/74 H 97 09/11/19 07:12 09/11/19 07:12 09/11/19 07:12 09/11/19 07:12 09/11/19 07:12 Intake & Output 09/10/19 09/11/19 09/12/19 06:59 06:59 06:59 Intake Total 1370 1190 Output Total 700 750 Balance 670 440 Weight 139.2 kg 139.2 kg General appearance: PRESENT: no acute distress Respiratory exam: PRESENT: decreased breath sounds Cardiovascular exam: PRESENT: RRR. ABSENT: diastolic murmur, rubs, systolic murmur Extremities exam: PRESENT: other - Cast on the right upper extremity over the wrist, feels no compromise of circulation good capillary filling, normal movement of her fingers Neurological exam: PRESENT: alert, awake, oriented to person, oriented to place, oriented to time, oriented to situation, CN II-XII grossly intact. ABSENT: motor sensory deficit Psychiatric exam: PRESENT: appropriate affect, normal mood. ABSENT: homicidal ideation, suicidal ideation Results Laboratory Results: 09/10/19 05:30 09/07/19 12:40 09/07/19 06:35 Blood Blood Culture (PCR) - Final Escherichia Coli 09/07/19 06:35 Blood Blood Culture - Final Escherichia Coli 09/07/19 09/07/19 09/07/19 04:30 12:40 16:18 Creatine Kinase CK-MB (CK-2) 0.98 0.99 Troponin I 0.040 0.033 0.021 NT-Pro-B Natriuret Pep 1430 H 09/07/19 09/08/19 09/09/19 22:23 05:13 05:24 Creatine Kinase CK-MB (CK-2) 0.93 Troponin I 0.012 NT-Pro-B Natriuret Pep 1840 H 1350 H 09/09/19 09/09/19 09/10/19 23:42 23:42 05:30 Creatine Kinase 55 CK-MB (CK-2) 1.51 1.37 Troponin I 0.014 < 0.012 NT-Pro-B Natriuret Pep 1250 H 09/10/19 09/10/19 09/10/19 05:30 11:30 11:30 Creatine Kinase 50 45 CK-MB (CK-2) 1.46 Troponin I < 0.012 NT-Pro-B Natriuret Pep Impressions: Abdomen Ultrasound 09/07/19 07:35 IMPRESSION: 1. Increased echogenicity of hepatic parenchyma suggestive of underlying hepatic steatosis. 2. Status post cholecystectomy. The common bile duct measures 6.9 mm in diameter (which is within the within normal limits when accounting for the patient's age and post cholecystectomy status). There is no dilatation of the intrahepatic bile ducts. 3. The pancreatic tail and IVC are obscured by overlying bowel. PICC Line Insertion 09/10/19 00:00 IMPRESSION: SUCCESSFUL PLACEMENT OF A 5 FR DUAL LUMEN 42 CM PICC IN THE LEFT BASILIC VEIN. Assessment and Plan - Diagnosis (1) Recurrent falls Is this a current diagnosis for this admission?: Yes (2) COPD exacerbation Is this a current diagnosis for this admission?: Yes (3) CHF (congestive heart failure) Is this a current diagnosis for this admission?: Yes (4) UTI (urinary tract infection) Is this a current diagnosis for this admission?: Yes (5) Morbid obesity with BMI of 45.0-49.9, adult Is this a current diagnosis for this admission?: Yes (6) Status post right wrist fracture Is this a current diagnosis for this admission?: Yes - Plan Summary Summary: 09/07/2019 Patient's history is somewhat confusing as to whether or not this is a COPD exacerbation or early mild congestive failure. And I think it is more of a COPD exacerbation because the patient was febrile, chest x-ray shows no overt failure, BNP is slightly elevated Going to treat with IV Lasix and Solu-Medrol. We will also cover with IV antibiotics Zithromax and Rocephin pending urine culture and further work-up Will order an echocardiogram. Patient states she would like custodial or rehab at time of discharge. She states she wants to be a DNR. Patient appears to be medically stable to transfer to the floor 09/08/2019 Vital signs are stable temperature 98 pulse 72 blood pressure 113/69 O2 sat between 95 and 97% on anywhere from 0.5 up to 2 L nasal cannula CBC this morning shows white count 11.8 BNP is up from 3711-2047 electrolytes are otherwise normal Patient is growing out E. coli in her blood cultures as well as gram-negative rods in her urine and is currently on cefepime and Zithromax Other IV meds include Lasix 20 mg every 12 hours and Solu-Medrol 40 mg every 12 hours Currently unable to determine the type of congestive heart failure or the acuity 09/09/2019 On admission BNP was 1430 went to 1840 now back down to 1350 Echo showed preserved ejection fracture 70% chest x-ray was negative Temperature 98.1 pulse 73 blood pressure 122/56 O2 sat 97 to 99% on 2 L Blood cultures positive for E. coli urine culture positive for E. coli. Both organisms sensitive to cefepime which she is on day 3 Will DC the Zithromax switch her to Rocephin 2 g daily, which is also appropriate ABX White blood cell count remained stable 11,000 Chest x-ray on admission showed no acute disease Patient can go to custodial facility on either Friday or Friday we will go ahead and test for COVID today 09/10/2019 Temperature 97.7 pulse 71 blood pressure 144/71 O2 sat 95% on 2 L Patient uses CPAP prior to admission Patient's white count is gone up slightly to 13,700 but she is on IV steroids BNP on admission was 1430 went up to 1840 then down to 1350 and today is down to 1250 Patient appears to have a UTI and bacteremia secondary to E. coli I can switch patient to p.o. Omnicef 300 mg twice daily for total of 14 days antibiotics, patient will need 10 more days from today , with EOT 09/20/2019 Patient medically stable for discharge whenever she is excepted 09/11/2019 Patient is sitting up in the chair speaking in full sentences with no respiratory distress. Only real Complaint is that her "cast is too tight". Into the patient this was put on approximately 3 weeks ago.. Patient has no clinical indication of compromised circulation. Good capillary filling good movement. We will try to find out who her orthopedic surgeon was so that he could see her while she is in the hospital, number [phone] Pressure 97 3 pulse 70 blood pressure 168/74 O2 sat 97% on 1 L White count 13,700 up slightly from admission 9.6 BN P is down to 1250 from a high of 1840 Patient has positive blood cultures and positive urine culture. Patient does have a PICC line and can continue giving IV antibiotics or if necessary for placement can switch to p.o. Omnicef I have resumed patient's home medications Patient desires to go to rehab at time of discharge - Time Time Spent with patient: 25-34 minutes
[2019-09-11] MEDS ORDERED: GLUCAGON,HUMAN RECOMB 1 MG INJ IM PRN (11:50)
[2019-09-11] MEDS ORDERED: DEXTROSE 40% GEL 15 GM TUBE PO PRN ×2 (11:50)
[2019-09-11] MEDS ORDERED: DEXTROSE 50%-WATER 25 GM/50 ML DISP.SYRIN IV PRN ×2 (11:50)
[2019-09-11] MEDS: NORMAL SALINE 10 ML SDV (AFTER EACH USE) IV PRN (12:45)
[2019-09-11] MEDS: GLIPIZIDE XL 5 MG TAB.ER.24 PO SCH (15:15)
[2019-09-11] MEDS: INSULIN LISPRO 100 UNIT/ML 3 ML VIAL SUBCUT SCH ×2 (17:48→22:24)
[2019-09-11] MEDS: GABAPENTIN 300 MG CAPSULE PO SCH (22:04)
[2019-09-12] MEDS: HEPARIN SOD (PORCINE) 5,000 UNIT/ML 1 ML VIAL SUBCUT SCH ×4 (05:29→22:08)
[2019-09-12 06:30] LABS: HEMATOCRIT 37.4 % (36.0-47.0); HEMOGLOBIN 12.4 g/dL (12.0-15.5); MEAN CORPUSCULAR HEMOGLOBIN 33.3 pg (27.0-33.4); MEAN CORPUSCULAR HGB CONC 33.2 g/dL (32.0-36.0); MEAN CORPUSCULAR VOLUME 100 fl (80-97); RED BLOOD COUNT 3.73 10^6/uL (3.72-5.28); RED CELL DISTRIBUTION WIDTH 17.3 % (11.5-14.0)
[2019-09-12 06:47] LABS: PLATELET COUNT 77 10^3/uL (150-450)
[2019-09-12 06:48] LABS: ABSOLUTE MONOCYTES # (MANUAL) 0.9 10^3/uL (0.1-1.4); BAND NEUTROPHILS % (MANUAL) 3 % (3-5); BASOPHILS % (MANUAL) 0 % (0-2); EOSINOPHILS % (MANUAL) 0 % (0-6); LYMPHOCYTES % (MANUAL) 8 % (13-45); MONOCYTES % (MANUAL) 7 % (3-13); SEGMENTED NEUTROPHILS % (MAN) 82 % (42-78); TOTAL CELLS COUNTED 100
[2019-09-12 06:49] LABS: ANISOCYTOSIS 1+; PLATELET COMMENT DECREASED; POLYCHROMASIA 1+
[2019-09-12 06:55] LABS: ANION GAP 5 (5-19); BLOOD UREA NITROGEN 40 mg/dL (7-20); CALCIUM 8.7 mg/dL (8.4-10.2); CARBON DIOXIDE 30 mmol/L (22-30); CHLORIDE 102 mmol/L (98-107); GLUCOSE 106 mg/dL (75-110); POTASSIUM 4.8 mmol/L (3.6-5.0)
[2019-09-12] MEDS: INSULIN LISPRO 100 UNIT/ML 3 ML VIAL SUBCUT SCH ×4 (07:36→22:18)
[2019-09-12] MEDS: OXYCODONE-ACETAMINOPHEN 5-325 MG TABLET PO PRN ×2 (07:50→17:53)
[2019-09-12] MEDS: METHYLPREDNISOLONE INJ 40 MG/1 ML SDV IV SCH ×2 (09:55→22:17)
[2019-09-12] MEDS: CEFTRIAXONE 2 GM/D5W RTU 2 GM/50 ML RTUPB IV SCH (09:55)
[2019-09-12] MEDS: FAMOTIDINE 20 MG TABLET PO SCH ×2 (09:55→22:17)
[2019-09-12] MEDS: ALLOPURINOL 100 MG TABLET PO SCH (09:55)
[2019-09-12] MEDS: METOPROLOL SUCCINATE 25 MG TAB.SR.24H PO SCH (09:55)
[2019-09-12] MEDS: ISOSORBIDE MONONITRATE 30 MG TAB.ER.24H PO SCH (09:56)
[2019-09-12] MEDS: GLIPIZIDE XL 5 MG TAB.ER.24 PO SCH (09:56)
[2019-09-12] MEDS: DOCUSATE SODIUM 100 MG CAPSULE PO SCH ×2 (09:56→17:53)
[2019-09-12] MEDS: COLCHICINE 0.6 MG TABLET PO SCH (09:56)
[2019-09-12] MEDS: SERTRALINE HCL 50 MG TABLET PO SCH (09:56)
[2019-09-12] MEDS: FOLIC ACID 1 MG TABLET PO SCH (09:56)
[2019-09-12] MEDS: FUROSEMIDE 40 MG TABLET PO SCH (09:56)
[2019-09-12] MEDS: NORMAL SALINE 10 ML SDV (SCHEDULED) IV SCH ×2 (09:57→22:18)
[2019-09-12] MEDS: FLUTICASONE/VILANTEROL 100-25 MCG/DOSE IH SCH (09:57)
[2019-09-12] MEDS ORDERED: METHOTREXATE SODIUM 2.5 MG TABLET PO SCH ×2 (10:00→12:00)
[2019-09-12] MEDS ORDERED: DOCUSATE SODIUM 100 MG CAPSULE PO SCH (10:00)
--- NOTE | 2019-09-12 11:05 | PDOC PROGRESS REPORT ---
Subjective Progress Note for:: 09/12/19 Reason For Visit: FEVER, SHORTNESS OF BREATH, FREQUENT FALLS, COPD 09/12/2019 Patient was admitted on 09/07/2019 for fever shortness of breath frequent falls COPD exacerbation and status post right risk fracture 3 weeks ago Physical Exam Vital Signs: Temp Pulse Resp BP Pulse Ox 97.7 F 67 20 147/70 H 97 09/12/19 07:50 09/12/19 07:50 09/12/19 07:50 09/12/19 07:50 09/12/19 07:50 Intake & Output 09/11/19 09/12/19 09/13/19 06:59 06:59 06:59 Intake Total 1190 1698 Output Total 750 Balance 440 1698 Weight 139.2 kg 132.5 kg General appearance: PRESENT: no acute distress - Patient has no complaints today but she did complain to the nurse that the cast on her arm was bothering her Respiratory exam: PRESENT: clear to auscultation brooke. ABSENT: rales, rhonchi, wheezes Cardiovascular exam: PRESENT: RRR. ABSENT: diastolic murmur, rubs, systolic murmur Extremities exam: PRESENT: other - No sign of compromise due to the right wrist cast Neurological exam: PRESENT: alert, awake, oriented to person, oriented to place, oriented to time, oriented to situation, CN II-XII grossly intact. ABSENT: motor sensory deficit Psychiatric exam: PRESENT: appropriate affect, normal mood. ABSENT: homicidal ideation, suicidal ideation Results Laboratory Results: 09/12/19 05:30 09/12/19 05:30 09/12/19 09/12/19 05:30 05:30 WBC 13.0 H RBC 3.73 Hgb 12.4 Hct 37.4 MCV 100 H MCH 33.3 MCHC 33.2 RDW 17.3 H Plt Count 77 L Seg Neutrophils % Not Reportable Sodium 136.5 L Potassium 4.8 Chloride 102 Carbon Dioxide 30 Anion Gap 5 BUN 40 H Creatinine 0.87 Est GFR ( Amer) > 60 Glucose 106 Calcium 8.7 09/07/19 09/07/19 09/07/19 04:30 12:40 16:18 Creatine Kinase CK-MB (CK-2) 0.98 0.99 Troponin I 0.040 0.033 0.021 NT-Pro-B Natriuret Pep 1430 H 09/07/19 09/08/19 09/09/19 22:23 05:13 05:24 Creatine Kinase CK-MB (CK-2) 0.93 Troponin I 0.012 NT-Pro-B Natriuret Pep 1840 H 1350 H 09/09/19 09/09/19 09/10/19 23:42 23:42 05:30 Creatine Kinase 55 CK-MB (CK-2) 1.51 1.37 Troponin I 0.014 < 0.012 NT-Pro-B Natriuret Pep 1250 H 09/10/19 09/10/19 09/10/19 05:30 11:30 11:30 Creatine Kinase 50 45 CK-MB (CK-2) 1.46 Troponin I < 0.012 NT-Pro-B Natriuret Pep 09/12/19 05:30 Creatine Kinase CK-MB (CK-2) Troponin I NT-Pro-B Natriuret Pep 396 H Impressions: Abdomen Ultrasound 09/07/19 07:35 IMPRESSION: 1. Increased echogenicity of hepatic parenchyma suggestive of underlying hepatic steatosis. 2. Status post cholecystectomy. The common bile duct measures 6.9 mm in diameter (which is within the within normal limits when accounting for the patient's age and post cholecystectomy status). There is no dilatation of the intrahepatic bile ducts. 3. The pancreatic tail and IVC are obscured by overlying bowel. PICC Line Insertion 09/10/19 00:00 IMPRESSION: SUCCESSFUL PLACEMENT OF A 5 FR DUAL LUMEN 42 CM PICC IN THE LEFT BASILIC VEIN. Assessment and Plan - Diagnosis (1) Recurrent falls Is this a current diagnosis for this admission?: Yes (2) COPD exacerbation Is this a current diagnosis for this admission?: Yes (3) CHF (congestive heart failure) Is this a current diagnosis for this admission?: Yes (4) UTI (urinary tract infection) Is this a current diagnosis for this admission?: Yes (5) Morbid obesity with BMI of 45.0-49.9, adult Is this a current diagnosis for this admission?: Yes (6) Status post right wrist fracture Is this a current diagnosis for this admission?: Yes - Plan Summary Summary: 09/07/2019 Patient's history is somewhat confusing as to whether or not this is a COPD exacerbation or early mild congestive failure. And I think it is more of a COPD exacerbation because the patient was febrile, chest x-ray shows no overt failure, BNP is slightly elevated Going to treat with IV Lasix and Solu-Medrol. We will also cover with IV a ntibiotics Zithromax and Rocephin pending urine culture and further work-up Will order an echocardiogram. Patient states she would like fpc or rehab at time of discharge. She states she wants to be a DNR. Patient appears to be medically stable to transfer to the floor 09/08/2019 Vital signs are stable temperature 98 pulse 72 blood pressure 113/69 O2 sat between 95 and 97% on anywhere from 0.5 up to 2 L nasal cannula CBC this morning shows white count 11.8 BNP is up from 0145-3161 electrolytes are otherwise normal Patient is growing out E. coli in her blood cultures as well as gram-negative rods in her urine and is currently on cefepime and Zithromax Other IV meds include Lasix 20 mg every 12 hours and Solu-Medrol 40 mg every 12 hours Currently unable to determine the type of congestive heart failure or the acuity 09/09/2019 On admission BNP was 1430 went to 1840 now back down to 1350 Echo showed preserved ejection fracture 70% chest x-ray was negative Temperature 98.1 pulse 73 blood pressure 122/56 O2 sat 97 to 99% on 2 L Blood cultures positive for E. coli urine culture positive for E. coli. Both organisms sensitive to cefepime which she is on day 3 Will DC the Zithromax switch her to Rocephin 2 g daily, which is also appropriate ABX White blood cell count remained stable 11,000 Chest x-ray on admission showed no acute disease Patient can go to fpc facility on either Friday or Friday we will go ahead and test for COVID today 09/10/2019 Temperature 97.7 pulse 71 blood pressure 144/71 O2 sat 95% on 2 L Patient uses CPAP prior to admission Patient's white count is gone up slightly to 13,700 but she is on IV steroids BNP on admission was 1430 went up to 1840 then down to 1350 and today is down to 1250 Patient appears to have a UTI and bacteremia secondary to E. coli I can switch patient to p.o. Omnicef 300 mg twice daily for total of 14 days antibiotics, patient will need 10 more days from today , with EOT 09/20/2019 Patient medically stable for discharge whenever she is excepted 09/11/2019 Patient is sitting up in the chair speaking in full sentences with no respiratory distress. Only real Complaint is that her "cast is too tight". Into the patient this was put on approximately 3 weeks ago.. Patient has no clinical indication of compromised circulation. Good capillary filling good movement. We will try to find out who her orthopedic surgeon was so that he could see her while she is in the hospital, number [phone] Pressure 97 3 pulse 70 blood pressure 168/74 O2 sat 97% on 1 L White count 13,700 up slightly from admission 9.6 BN P is down to 1250 from a high of 1840 Patient has positive blood cultures and positive urine culture. Patient does have a PICC line and can continue giving IV antibiotics or if necessary for placement can switch to p.o. Omnicef I have resumed patient's home medications Patient desires to go to rehab at time of discharge 09/12/2019 Low blood sugar last night. Patient tells me she is only been a diabetic for about a year and so far the lowest her blood sugar has ever been was 79. Last night her blood sugar was in the T3 according to the chart, otherwise her fingerstick blood sugars are in the mid to upper 100s I will check a hemoglobin A1c tomorrow morning Patient tells me she had a good bowel movement yesterday. BNP is back down to 396 and I am going to change her Lasix to p.o. COVID testing on 09/07/2019 was negative Urine and blood both seem to be sensitive to cephalosporins Patient was seen by physical therapy yesterday, benefit from therapy 2-5 times per week, she is however independent Patient is medically stable to be discharged tomorrow to [facility] - Time Time Spent with patient: 25-34 minutes
[2019-09-12] MEDS: PRAMIPEXOLE DI-HCL 0.5 MG TABLET PO SCH (12:00)
[2019-09-12] MEDS: ALLOPURINOL 300 MG TABLET PO SCH (12:01)
[2019-09-12] MEDS: NORMAL SALINE 10 ML SDV (AFTER EACH USE) IV PRN (12:10)
[2019-09-12] MEDS: GABAPENTIN 300 MG CAPSULE PO SCH (22:17)
[2019-09-13] MEDS: HEPARIN SOD (PORCINE) 5,000 UNIT/ML 1 ML VIAL SUBCUT SCH ×2 (05:07→13:21)
[2019-09-13] MEDS: INSULIN LISPRO 100 UNIT/ML 3 ML VIAL SUBCUT SCH ×2 (07:43→11:52)
[2019-09-13] MEDS: FAMOTIDINE 20 MG TABLET PO SCH (09:36)
[2019-09-13] MEDS: CEFTRIAXONE 2 GM/D5W RTU 2 GM/50 ML RTUPB IV SCH (09:36)
[2019-09-13] MEDS: FLUTICASONE/VILANTEROL 100-25 MCG/DOSE IH SCH (09:36)
[2019-09-13] MEDS: METHYLPREDNISOLONE INJ 40 MG/1 ML SDV IV SCH (09:36)
[2019-09-13] MEDS: DOCUSATE SODIUM 100 MG CAPSULE PO SCH (09:37)
[2019-09-13] MEDS: ISOSORBIDE MONONITRATE 30 MG TAB.ER.24H PO SCH (09:37)
[2019-09-13] MEDS: METOPROLOL SUCCINATE 25 MG TAB.SR.24H PO SCH (09:37)
[2019-09-13] MEDS: FOLIC ACID 1 MG TABLET PO SCH (09:37)
[2019-09-13] MEDS: FUROSEMIDE 40 MG TABLET PO SCH (09:37)
[2019-09-13] MEDS: COLCHICINE 0.6 MG TABLET PO SCH (09:37)
[2019-09-13] MEDS: ALLOPURINOL 100 MG TABLET PO SCH (09:37)
[2019-09-13] MEDS: PRAMIPEXOLE DI-HCL 0.5 MG TABLET PO SCH (09:37)
[2019-09-13] MEDS: SERTRALINE HCL 50 MG TABLET PO SCH (09:37)
[2019-09-13] MEDS: NORMAL SALINE 10 ML SDV (SCHEDULED) IV SCH (09:38)
[2019-09-13] MEDS: ALLOPURINOL 300 MG TABLET PO SCH (09:38)
[2019-09-13] MEDS ORDERED: GLIPIZIDE 5 MG TABLET PO SCH (10:00)
--- NOTE | 2019-09-13 11:53 | PDOC TRANSFER SUMMARY ---
Impression - Admit/DC Date/PCP Admission Date/Primary Care Provider: 09/07/19 09:19 HU HUGHES PA-C Discharge Date: 09/13/19 - Discharge Diagnosis (1) Recurrent falls Is this a current diagnosis for this admission?: Yes (2) COPD exacerbation Is this a current diagnosis for this admission?: Yes (3) CHF (congestive heart failure) Is this a current diagnosis for this admission?: Yes (4) UTI (urinary tract infection) Is this a current diagnosis for this admission?: Yes (5) Morbid obesity with BMI of 45.0-49.9, adult Is this a current diagnosis for this admission?: Yes (6) Status post right wrist fracture Is this a current diagnosis for this admission?: Yes - Assessment Summary: 09/07/2019 Patient's history is somewhat confusing as to whether or not this is a COPD exacerbation or early mild congestive failure. And I think it is more of a COPD exacerbation because the patient was febrile, chest x-ray shows no overt failure, BNP is slightly elevated Going to treat with IV Lasix and Solu-Medrol. We will also cover with IV antibiotics Zithromax and Rocephin pending urine culture and further work-up Will order an echocardiogram. Patient states she would like halfway or rehab at time of discharge. She states she wants to be a DNR. Patient appears to be medically stable to transfer to the floor 09/08/2019 Vital signs are stable temperature 98 pulse 72 blood pressure 113/69 O2 sat between 95 and 97% on anywhere from 0.5 up to 2 L nasal cannula CBC this morning shows white count 11.8 BNP is up from [id number] electrolytes are otherwise normal Patient is growing out E. coli in her blood cultures as well as gram-negative rods in her urine and is currently on cefepime and Zithromax Other IV meds include Lasix 20 mg every 12 hours and Solu-Medrol 40 mg every 12 hours Currently unable to determine the type of congestive heart failure or the acuity 09/09/2019 On admission BNP was 1430 went to 1840 now back down to 1350 Echo showed preserved ejection fracture 70% chest x-ray was negative Temperature 98.1 pulse 73 blood pressure 122/56 O2 sat 97 to 99% on 2 L Blood cultures positive for E. coli urine culture positive for E. coli. Both organisms sensitive to cefepime which she is on day 3 Will DC the Zithromax switch her to Rocephin 2 g daily, which is also appropriate ABX White blood cell count remained stable 11,000 Chest x-ray on admission showed no acute disease Patient can go to halfway facility on either Friday or Friday we will go ahead and test for COVID today 09/10/2019 Temperature 97.7 pulse 71 blood pressure 144/71 O2 sat 95% on 2 L Patient uses CPAP prior to admission Patient's white count is gone up slightly to 13,700 but she is on IV steroids BNP on admission was 1430 went up to 1840 then down to 1350 and today is down to 1250 Patient appears to have a UTI and bacteremia secondary to E. coli I can switch patient to p.o. Omnicef 300 mg twice daily for total of 14 days antibiotics, patient will need 10 more days from today , with EOT 09/20/2019 Patient medically stable for discharge whenever she is excepted 09/11/2019 Patient is sitting up in the chair speaking in full sentences with no respiratory distress. Only real Complaint is that her "cast is too tight". Into the patient this was put on approximately 3 weeks ago.. Patient has no clinical indication of compromised circulation. Good capillary filling good movement. We will try to find out who her orthopedic surgeon was so that he could see her while she is in the hospital, number [phone] Pressure 97 3 pulse 70 blood pressure 168/74 O2 sat 97% on 1 L White count 13,700 up slightly from admission 9.6 BN P is down to 1250 from a high of 1840 Patient has positive blood cultures and positive urine culture. Patient does have a PICC line and can continue giving IV antibiotics or if necessary for placement can switch to p.o. Omnicef I have resumed patient's home medications Patient desires to go to rehab at time of discharge 09/12/2019 Low blood sugar last night. Patient tells me she is only been a diabetic for about a year and so far the lowest her blood sugar has ever been was 79. Last night her blood sugar was 73 according to the chart, otherwise her fingerstick blood sugars are in the mid to upper 100s I will check a hemoglobin A1c tomorrow morning. I am going to decrease her glipizide to 2.5 mg daily Patient tells me she had a good bowel movement yesterday. BNP is back down to 396 and I am going to change her Lasix to p.o. COVID testing on 09/07/2019 was negative Urine and blood both seem to be sensitive to cephalosporins Patient was seen by physical therapy yesterday, benefit from therapy 2-5 times per week, she is however independent Patient is medically stable to be discharged tomorrow to [facility] 09/13/2019 Patient is discharged today in good stable condition. Temperature 97.7 pulse 60 blood pressure 130/54 O2 sat between 99 and 100% on 2 L nasal cannula CBC is normal glucose ranges anywhere from 120-260 A1c today is 6 She has been switched over to Omnicef 300 mg twice daily to complete her course of antibiotics Patient was admitted on 09/07/2023 probable COPD exacerbation, generalized weakness, shortness of breath, fever Patient has no shortness of breath now patient does not appear to be septic or toxic - Additional Information Resuscitation Status: Do Not Resuscitate Discharge Diet: Cardiac, Diabetic Discharge Activity: Activity As Tolerated, Balance Activity w/Rest, Energy Conservation, Weigh Daily Referrals: [facility] [Outside] HU HUGHES PA-C [Primary Care Provider] - Follow up as needed Prescriptions: Cefdinir 300 mg PO Q12 8 Days #16 capsule Glipizide [Glucotrol 5 mg Tablet] 2.5 mg PO DAILY 30 Days #30 tablet Home Medications: Allopurinol 100 mg PO DAILY 10/10/14 Colchicine [Colcrys 0.6 mg Tablet] 1 tab PO DAILY 10/10/14 Cyclobenzaprine HCl 10 mg PO DAILYP PRN 10/10/14 Esomeprazole Magnesium [Nexium] 40 mg PO DAILY 10/10/14 Furosemide [Lasix] 40 mg PO DAILY 10/10/14 Pramipexole Di-HCl [Pramipexole Dihydrochloride] 0.5 mg PO DAILY 10/10/14 Sertraline HCl 50 mg PO DAILY 10/10/14 Nitroglycerin [Nitrostat 0.4 mg (1/150 Gr) Tabs 25/Bottle] 0.4 mg SL ASDIR PRN 10/11/14 Simvastatin [Zocor 40 mg Tablet] 40 mg PO QHS 10/11/14 Folic Acid 1 mg PO DAILY 06/02/17 Allopurinol [Zyloprim] 300 mg PO DAILY 06/03/17 Gabapentin 300 mg PO QHS 06/03/17 Albuterol Sulfate [Proair HFA Inhalation Aerosol 8.5 gm MDI] 2 puff IH Q4H 09/07/19 Docusate Sodium [Stool Softener] 100 mg PO DAILY 09/07/19 Fluticasone/Vilanterol [Breo Ellipta 100-25 Mcg INH] 1 puff IH DAILY 09/07/19 Isosorbide Mononitrate [Imdur 30 mg Tablet.er] 30 mg PO DAILY 09/07/19 Methotrexate Sodium [Rheumatrex 2.5 mg Tablet] 20 mg PO NICKERSON@1000 09/07/19 Metoprolol Succinate [Toprol Xl 25 mg Tab.sr] 25 mg PO DAILY 09/07/19 Oxycodone HCl/Acetaminophen [Oxycodone-Acetaminophen 10-325] 1 tab PO TIDP PRN 09/07/19 Prednisone [Deltasone 5 mg Tablet] 7.5 mg PO DAILY 09/07/19 Acetaminophen [Tylenol 325 mg Tablet] 650 mg PO Q4HP PRN tablet 09/13/19 Cefdinir 300 mg PO Q12 8 Days #16 capsule 09/13/19 Furosemide [Lasix 40 mg Tablet] 40 mg PO DAILY tablet 09/13/19 Glipizide [Glucotrol 5 mg Tablet] 2.5 mg PO DAILY 30 Days #30 tablet 09/13/19 History of Present Illiness History of Present Illness: RU YUSUF is a 74 year old female noted through the emergency room for COPD exacerbation, generalized weakness, shortness of breath, and fever.. Tells me that for the last several days now she has been more short of breath yesterday started running a fever. Patient has a history of CHF states she has been taking her medicine as prescribed. Tells me that back in April she was admitted to [facility] for about 4 days for pneumonia.. Patient tells me now that her biggest problem is that she is falling all the time and in fact has a cast on her right wrist from a fall 1 month ago. In the emergency room her temperature was 100.8 but since then has come down to normal 98.1. White count is normal 9.6. BNP on admission 1430. Renal function appears to be at baseline creatinine 1.31 Lactic acid appears to be elevated at 2.9 on 2 separate occasions First troponin was elevated at 0.040 Analysis shows moderate blood and moderate leukocytes Covid PCR is negative Chest x-ray shows no acute cardiopulmonary disease Physical Exam Vital Signs: Temp Pulse Resp BP Pulse Ox 97.7 F 61 18 144/72 H 97 09/13/19 07:14 09/13/19 07:14 09/13/19 07:14 09/13/19 07:14 09/13/19 07:14 Intake & Output 09/12/19 09/13/19 09/14/19 06:59 06:59 06:59 Intake Total 1698 770 Balance 1698 770 Weight 132.5 kg 130.3 kg Results Laboratory Results: WBC 13.0 10^3/uL (4.0-10.5) H 09/12/19 05:30 RBC 3.73 10^6/uL (3.72-5.28) 09/12/19 05:30 Hgb 12.4 g/dL (12.0-15.5) 09/12/19 05:30 Hct 37.4 % (36.0-47.0) 09/12/19 05:30 MCV 100 fl (80-97) H 09/12/19 05:30 MCH 33.3 pg (27.0-33.4) 09/12/19 05:30 MCHC 33.2 g/dL (32.0-36.0) 09/12/19 05:30 RDW 17.3 % (11.5-14.0) H 09/12/19 05:30 Plt Count 77 10^3/uL (150-450) L 09/12/19 05:30 Lymph % (Auto) Not Reportable 09/12/19 05:30 [place] % (Auto) Not Reportable 09/12/19 05:30 Eos % (Auto) Not Reportable 09/12/19 05:30 Baso % (Auto) Not Reportable 09/12/19 05:30 Absolute Neuts (auto) Not Reportable 09/12/19 05:30 Absolute Lymphs (auto) Not Reportable 09/12/19 05:30 Absolute Monos (auto) Not Reportable 09/12/19 05:30 Absolute Eos (auto) Not Reportable 09/12/19 05:30 Absolute Basos (auto) Not Reportable 09/12/19 05:30 Total Counted 100 09/12/19 05:30 Seg Neutrophils % Not Reportable 09/12/19 05:30 Seg Neuts % (Manual) 82 % (42-78) H 09/12/19 05:30 Band Neutrophils % 3 % (3-5) 09/12/19 05:30 Lymphocytes % (Manual) 8 % (13-45) L 09/12/19 05:30 Monocytes % (Manual) 7 % (3-13) 09/12/19 05:30 Eosinophils % (Manual) 0 % (0-6) 09/12/19 05:30 Basophils % (Manual) 0 % (0-2) 09/12/19 05:30 Abs Neuts (Manual) 11.1 10^3/uL (1.7-8.2) H 09/12/19 05:30 Abs Lymphs (Manual) 1.0 10^3/uL (0.5-4.7) 09/12/19 05:30 Abs Monocytes (Manual) 0.9 10^3/uL (0.1-1.4) 09/12/19 05:30 Absolute Eos (Manual) 0.0 10^3/uL (0.0-0.6) 09/12/19 05:30 Abs Basophils (Manual) 0.0 10^3/uL (0.0-0.2) 09/12/19 05:30 Toxic Granulation SLIGHT 09/07/19 04:30 Toxic Vacuolation PRESENT 09/07/19 04:30 Platelet Comment DECREASED 09/12/19 05:30 Polychromasia 1+ 09/12/19 05:30 Poikilocytosis SLIGHT 09/07/19 04:30 Anisocytosis 1+ 09/12/19 05:30 Tear Drop Cells SLIGHT 09/07/19 04:30 PT 15.5 SEC (11.4-15.4) H 09/07/19 04:30 INR 1.22 09/07/19 04:30 VBG pH 7.39 (7.30-7.42) 09/07/19 04:30 VBG pCO2 37.9 mmHg (35-63) 09/07/19 04:30 VBG HCO3 22.5 mmol/L (20-32) 09/07/19 04:30 VBG Base Excess -2.1 mmol/L 09/07/19 04:30 Sodium 136.5 mmol/L (137-145) L 09/12/19 05:30 Potassium 4.8 mmol/L (3.6-5.0) 09/12/19 05:30 Chloride 102 mmol/L (98-107) 09/12/19 05:30 Carbon Dioxide 30 mmol/L (22-30) 09/12/19 05:30 Anion Gap 5 (5-19) 09/12/19 05:30 BUN 40 mg/dL (7-20) H 09/12/19 05:30 Creatinine 0.87 mg/dL (0.52-1.25) 09/12/19 05:30 Est GFR ( Amer) > 60 (>60) 09/12/19 05:30 Est GFR (MDRD) Non-Af > 60 (>60) 09/12/19 05:30 Glucose 106 mg/dL (75-110) 09/12/19 05:30 POC Glucose 148 mg/dL (70-110) H 09/13/19 06:02 Hemoglobin A1c % 6.0 % (4.7-6.0) 09/13/19 06:35 Lactic Acid 2.7 mmol/L (0.7-2.1) H 09/07/19 12:40 Calcium 8.7 mg/dL (8.4-10.2) 09/12/19 05:30 Magnesium 2.3 mg/dL (1.6-2.3) 09/08/19 05:13 Total Bilirubin 3.4 mg/dL (0.2-1.3) H 09/07/19 04:30 Direct Bilirubin 1.4 mg/dL (0.0-0.4) H 09/07/19 04:30 Neonat Total Bilirubin Not Reportable 09/07/19 04:30 Neonat Direct Bilirubin Not Reportable 09/07/19 04:30 Neonat Indirect Bili Not Reportable 09/07/19 04:30 AST 68 U/L (14-36) H 09/07/19 04:30 ALT 38 U/L (<35) H 09/07/19 04:30 Alkaline Phosphatase 128 U/L (38-126) H 09/07/19 04:30 Creatine Kinase 45 U/L (30-135) 09/10/19 11:30 CK-MB (CK-2) 1.46 ng/mL (<4.55) 09/10/19 11:30 Troponin I < 0.012 ng/mL 09/10/19 11:30 NT-Pro-B Natriuret Pep 396 pg/mL (<125) H 09/12/19 05:30 Total Protein 6.1 g/dL (6.3-8.2) L 09/07/19 04:30 Albumin 3.5 g/dL (3.5-5.0) 09/07/19 04:30 Urine Color HORACIO 09/07/19 06:20 Urine Appearance CLOUDY 09/07/19 06:20 Urine pH 5.0 (5.0-9.0) 09/07/19 06:20 Ur Specific [place] 1.016 09/07/19 06:20 Urine Protein 100 mg/dL (NEGATIVE) H 09/07/19 06:20 Urine Glucose (UA) NEGATIVE mg/dL (NEGATIVE) 09/07/19 06:20 Urine Ketones NEGATIVE mg/dL (NEGATIVE) 09/07/19 06:20 Urine Blood MODERATE (NEGATIVE) H 09/07/19 06:20 Urine Nitrite (Reflex) NEGATIVE (NEGATIVE) 09/07/19 06:20 Urine Bilirubin NEGATIVE (NEGATIVE) 09/07/19 06:20 Urine Urobilinogen 2.0 mg/dL (<2.0) H 09/07/19 06:20 Leukocyte Esterase Rfl MODERATE (NEGATIVE) H 09/07/19 06:20 Urine RBC (Auto) 21 /HPF 09/07/19 06:20 U Hyaline Cast (Auto) 6 /LPF 09/07/19 06:20 Urine Bacteria (Auto) 3+ /HPF 09/07/19 06:20 Urine WBC (Reflex) > 182 /HPF 09/07/19 06:20 Urine WBC Clumps MANY /HPF 09/07/19 06:20 Squamous Epi Cells Auto <1 /HPF 09/07/19 06:20 Amorphous Sediment Auto TRACE /HPF 09/07/19 06:20 Urine Mucus (Auto) OCC /LPF 09/07/19 06:20 Urine Ascorbic Acid NEGATIVE (NEGATIVE) 09/07/19 06:20 COVID-19 Source NASOPHARYNGEAL 09/10/19 02:23 COVID-19 (NIALL) NOT DETECTED 09/10/19 02:23 SARS-CoV-2 (PCR) NEGATIVE (NEGATIVE) 09/07/19 06:45 09/07/19 09/07/19 09/07/19 04:30 12:40 16:18 CK-MB (CK-2) 0.98 0.99 Troponin I 0.040 0.033 0.021 NT-Pro-B Natriuret Pep 1430 H 09/07/19 09/08/19 09/09/19 22:23 05:13 05:24 CK-MB (CK-2) 0.93 Troponin I 0.012 NT-Pro-B Natriuret Pep 1840 H 1350 H 09/09/19 09/10/19 09/10/19 23:42 05:30 11:30 CK-MB (CK-2) 1.51 1.37 1.46 Troponin I 0.014 < 0.012 < 0.012 NT-Pro-B Natriuret Pep 1250 H 09/12/19 05:30 CK-MB (CK-2) Troponin I NT-Pro-B Natriuret Pep 396 H Impressions: Abdomen Ultrasound 09/07/19 07:35 IMPRESSION: 1. Increased echogenicity of hepatic parenchyma suggestive of underlying hepatic steatosis. 2. Status post cholecystectomy. The common bile duct measures 6.9 mm in diameter (which is within the within normal limits when accounting for the patient's age and post cholecystectomy status). There is no dilatation of the intrahepatic bile ducts. 3. The pancreatic tail and IVC are obscured by overlying bowel. PICC Line Insertion 09/10/19 00:00 IMPRESSION: SUCCESSFUL PLACEMENT OF A 5 FR DUAL LUMEN 42 CM PICC IN THE LEFT BASILIC VEIN. Stroke Is this a Stroke Patient?: No Acute Heart Failure - Is this a Heart Failure Patient?: Yes Documentation of LVEF assessment?: No, Document reason - Has been done as an outpatient previously LVEF - Reason: Done as an outpatient LVEF: LVEF Greater Than 40% Anticoagulant Therapy: Yes Discharged on Evidence-Based Beta Blockers: Yes Discharged on ARNI?: No-Document Contraindications Reason(s) not discharged on ARNI: Other - Unknown ARNI Reason - Other: Unknown Discharged on ARB?: No-document contraindications - Unknown Reason(s) not Discharged on ARB: Other - unknown ARB Reason - Other: Unknown Discharged on ACEI?: No, document contraindications - Unknown Reason(s) not Discharged on ACEI: other - unknown ACEI Reason - Other: Unknown For LVEF <35%, discharged on Aldosterone Antagonist?: No-document contraincations - unKnown Reason(s) not discharged on Aldosterone Antagonist: Other - Unknown Aldosterone Antagonist Reason - Other: Unknown Follow-up Appointment scheduled within 7 days?: Yes
[2019-09-13 12:15] VITALS: BP 129/61
--- NOTE | 2019-09-13 17:07 | Progress Note ---
Provider Note Provider Note: Unable to determine type or acuity of CHF
[2019-09-19] MEDS ORDERED: METHOTREXATE SODIUM 2.5 MG TABLET PO SCH (10:00)
== END 2019-09-13 15:43 | DRG 191 ==
LOC: ER 04:12 → EH 09:19 → 4W 13:11 → 4N 09-09 18:29
PROVIDERS: ADMIT Family Medicine; ATTEND Physician Assistant
PROC: 02HV33Z Insertion of Infusion Device into Superior Vena Cava, Percutaneous Approach (ICD-10-PCS; principal; 2019-09-10)
PROC: B548ZZA Ultrasonography of Superior Vena Cava, Guidance (ICD-10-PCS; 2019-09-10)
PROC: B5181ZA Fluoroscopy of Superior Vena Cava using Low Osmolar Contrast, Guidance (ICD-10-PCS; 2019-09-10)
DX: J44.1 Chronic obstructive pulmonary disease with (acute) exacerbation (principal); N39.0 Urinary tract infection, site not specified; Z68.42 Body mass index [BMI] 45.0-49.9, adult; I69.854 Hemiplegia and hemiparesis following other cerebrovascular disease affecting left non-dominant side; R29.6 Repeated falls; I50.9 Heart failure, unspecified; E66.01 Morbid (severe) obesity due to excess calories; B96.20 Unspecified Escherichia coli [E. coli] as the cause of diseases classified elsewhere; Z66 Do not resuscitate; E78.5 Hyperlipidemia, unspecified; I11.0 Hypertensive heart disease with heart failure; E11.51 Type 2 diabetes mellitus with diabetic peripheral angiopathy without gangrene; G47.30 Sleep apnea, unspecified; K21.9 Gastro-esophageal reflux disease without esophagitis; F32.9 Major depressive disorder, single episode, unspecified; I25.2 Old myocardial infarction; Z03.818 Encounter for observation for suspected exposure to other biological agents ruled out; Z79.899 Other long term (current) drug therapy; Z79.84 Long term (current) use of oral hypoglycemic drugs; Z88.8 Allergy status to other drugs, medicaments and biological substances
CPT/HCPCS: 36415; 36573; 51701; 71045; 76705; 80048; 80053; 81001; 82550; 82553; 82803; 82962; 83036; 83605; 83735; 83880; 84484; 85025; 85610; 87040; 87077; 87086; 87088; 87150; 87186; 87635; 93005; 93010; 93306; 96361; 96365; 99285; C1769; C9803; J0456; J0692; J0696; J1642; J1644; J1815; J1940; J2270; J2920; J3490; J7030; J7060; J8610

== ENCOUNTER → 2020-04-03 | Outpatient (CLI) | payer MEDICARE, MEDICAID ==
--- NOTE | 2020-04-03 14:42 | WOMENS IMAGING REPORT ---
EXAM DESCRIPTION: 3D SCREENING MAMMO BILAT IMAGES COMPLETED DATE/TIME: 04/03/2020 1:23 pm REASON FOR STUDY: Z12.31 ENCNTR SCREEN MAMMOGRAM FOR MALIGNANT NEOPLASM OF BREAST Z12.31 ENCNTR SCR EEN MAMMOGRAM FOR MALIGNANT NEOPLASM OF ARELY COMPARISON: 2015 and subsequent EXAM PARAMETERS: Views: Standard craniocaudal and mediolateral oblique views of each breast recorded using digital acquisition and breast tomosynthesis. Read with the assistance of CAD. .[facility] - [employer] Taping Machine Operator Version 9.2 LIMITATIONS: None. FINDINGS: No suspicious masses, suspicious calcifications or architectural distortion. No areas of c oncern. IMPRESSION: NEGATIVE MAMMOGRAM. BIRADS 1. BREAST DENSITY: b. There are scattered areas of fibroglandular density. BIRAD: ASSESSMENT: 1 NEGATIVE RECOMMENDATION: ROUTINE SCREENING COMMENT: The patient has been notified of the results by letter per MQSA requirements. Additional no tification policies are in place for contacting patient with suspicious or incomplete findings. Quality ID #[id number]: The [employer] recommends an annual screening mammogram for women aged 40 years or over. This facility utilizes a reminder system to ensure that all patients receive reminder letters, and/or direct phone calls for appointments. This includes reminders for routine scr eening mammograms, diagnostic mammograms, or other Breast Imaging Interventions when appropriate. Th is patient will be placed in the appropriate reminder system. TECHNICAL DOCUMENTATION: FINDING NUMBER: (1) ASSESSMENT: (1) JOB ID: [id number] 2010 [employer]- All Rights Reserved Reading location - IP/workstation name: [email or web address]
== END ==
LOC: WI 14:37
PROVIDERS: ATTEND Physician Assistant
DX: Z12.31 Encounter for screening mammogram for malignant neoplasm of breast (principal)
CPT/HCPCS: 77063; 77067